=== PATIENT | female | born 1940 | race Caucasian/White ===

== ENCOUNTER → 2017-12-11 11:38 | Outpatient (CLI) | payer MEDICARE, SELFPAY ==
--- NOTE | 2017-12-11 11:42 | DI.MG.S_ITS ---
BILATERAL DIGITAL SCREENING MAMMOGRAM 3D/2D WITH CAD: 12/11/2017 CLINICAL: Routine screening. Comparison is made to exams dated: 03/04/2014 mammogram, 05/31/2013 mammogram, and 05/24/2013 mammogram - [facility]. The tissue of both breasts is predominantly fatty. Current study was also evaluated with a Computer Aided Detection (CAD) system. There are benign vascular calcifications in both breasts. No significant masses, calcifications, or other findings are seen in either breast. There has been no significant interval change. IMPRESSION: BENIGN There is no mammographic evidence of malignancy. A 1 year screening mammogram is recommended. This exam was interpreted at Station ID: [id number]. NOTE: For mammograms, a report in lay terms will be sent to the patient. Approximately 15% of breast malignancies will not be visualized mammographically. In the management of a palpable breast mass, a negative mammogram must not discourage biopsy of a clinically suspicious lesion. Electronically Signed By: Faby thomas/kelley:12/11/2017 13:12:02 letter sent: Normal Exam ACR BI-RADS Category 2: Benign Finding(s) 3342F
== END ==
PROVIDERS: Visit Provider Internal Medicine
DX: Z12.31 Encounter for screening mammogram for malignant neoplasm of breast (principal)
CPT/HCPCS: 77063; 77067

== ENCOUNTER → 2018-11-06 16:25 | Outpatient (CLI) | payer MEDICARE, SELFPAY ==
--- NOTE | 2018-11-06 16:29 | DI.RAD.S_ITS ---
PROCEDURE: XR ANKLE LT MIN 3V INDICATIONS: LEFT ANKLE SPRAIN TECHNIQUE: 3 views of the ankle were acquired. COMPARISON: None. FINDINGS: Bones: No fractures or dislocations. Ankle mortise is normally aligned. No suspicious bony lesions. Soft tissues: No tibiotalar joint effusion. Achilles tendon appears normal. Relatively prominent soft tissue swelling is present along the medial aspect of the distal tibia. No malalignment is associated, however. IMPRESSION: No trauma found. A mild degree of ankle joint osteoarthritis is present as indicated by mild joint space narrowing. Note is made of soft tissue swelling over the medial malleolus, potentially a manifestation of hematoma or ligamentous injury after trauma. Dictated by: Noman Hiknle M.D. on 11/06/2018 at 17:30 Approved by: Noman Hinkle M.D. on 11/06/2018 at 17:31
== END ==
PROVIDERS: Visit Provider Internal Medicine
DX: S93.402A Sprain of unspecified ligament of left ankle, initial encounter (principal); M79.89 Other specified soft tissue disorders; M19.072 Primary osteoarthritis, left ankle and foot
CPT/HCPCS: 73610

== ENCOUNTER → 2019-04-09 12:58 | Outpatient (CLI) | payer MEDICARE, SELFPAY ==
--- NOTE | 2019-04-09 | DI.MG.S_ITS ---
BILATERAL DIGITAL SCREENING MAMMOGRAM 3D/2D WITH CAD: 04/09/2019 CLINICAL: Routine screening. Comparison is made to exams dated: 12/11/2017 mammogram, 05/24/2013 mammogram, and 05/22/2012 mammogram - [facility]. There are scattered fibroglandular elements in both breasts. Current study was also evaluated with a Computer Aided Detection (CAD) system. There are benign calcifications in both breasts. There also are benign vascular calcifications in both breasts. No significant masses, calcifications, or other findings are seen in either breast. There has been no significant interval change. IMPRESSION: There is no mammographic evidence of malignancy. A 1 year screening mammogram is recommended. This exam was interpreted at Station ID: [id number]. NOTE: For mammograms, a report in lay terms will be sent to the patient. Approximately 15% of breast malignancies will not be visualized mammographically. In the management of a palpable breast mass, a negative mammogram must not discourage biopsy of a clinically suspicious lesion. Electronically Signed By: Israel eubanks/kelley:04/12/2019 13:29:06 letter sent: Normal Exam ACR BI-RADS Category 2: Benign Finding(s) 3342F
== END ==
PROVIDERS: Visit Provider Internal Medicine
DX: Z12.31 Encounter for screening mammogram for malignant neoplasm of breast (principal)
CPT/HCPCS: 77063; 77067

== ENCOUNTER → 2019-05-04 12:46 | Outpatient (CLI) | payer MEDICARE, SELFPAY ==
[2019-05-04 13:49] LABS: Aspartate Aminotransferase 34 IU/L (14-36); Blood Urea Nitrogen 12 mg/dL (7-17); Calcium 9.8 mg/dL (8.4-10.2); Carbon Dioxide 25 mmol/L (22-32); Chloride 93 mmol/L (98-107); Cholesterol 125 mg/dL (140-199); Estimated Glomerular Filt Rate > 60.0 mL/min (>60); Glucose 101 mg/dL (80-110); HDL Cholesterol 40 mg/dL (40-60); HEMOLYSIS < 15 (0-50); LDL Cholesterol Calculated 60 mg/dL (<100); Potassium 3.4 mmol/L (3.4-5.1); Sodium 131 mmol/L (137-145); Triglycerides 127 mg/dL (35-150)
[2019-05-04 15:06] LABS: Thyroid Stimulating Hormone 1.83 uIU/mL (0.47-4.68)
== END ==
PROVIDERS: PCP Internal Medicine; Referring Provider Internal Medicine; Visit Provider Internal Medicine
DX: I10 Essential (primary) hypertension (principal); E78.2 Mixed hyperlipidemia; E03.9 Hypothyroidism, unspecified
CPT/HCPCS: 36415; 80048; 80061; 84443; 84450

== ENCOUNTER → 2020-12-05 09:11 | Outpatient (CLI) | payer MEDICARE, SELFPAY ==
[2020-12-05 09:57] LABS: Hematocrit 33.6 % (36-46); Hemoglobin 11.3 g/dL (12.0-16.0); Mean Corpuscular HGB Conc 33.6 % (30-36); Mean Corpuscular Hemoglobin 27.6 PG (26-34); Mean Corpuscular Volume 82.4 fL (80-100); Platelet Count 309 X10^3/uL (150-400); Red Blood Cell Count 4.08 X10^6/uL (4.0-5.2); Red Cell Distribution Width 13.6 % (11.6-14.8); White Blood Cell Count 12.2 X10^3/uL (4.5-11.0)
[2020-12-05 09:58] LABS: Add Manual Diff / Slide Review YES
[2020-12-05 10:44] LABS: Alanine Aminotransferase 22 IU/L (<35); Albumin 4.1 g/dL (3.5-5.0); Albumin Globulin Ratio 1.3 (1.0-2.8); Alkaline Phosphatase 112 U/L (38-126); Aspartate Aminotransferase 36 IU/L (14-36); Bilirubin Total 0.4 mg/dL (0.2-1.3); Blood Urea Nitrogen 21 mg/dL (7-17); Calcium 9.6 mg/dL (8.4-10.2); Carbon Dioxide 29 mmol/L (22-32); Chloride 97 mmol/L (98-107); Cholesterol 107 mg/dL (140-199); Estimated Glomerular Filt Rate 53.1 mL/min (>60); Globulin 3.1 g/dL (1.7-4.1); Glucose 103 mg/dL (80-110); HDL Cholesterol 35 mg/dL (40-60); HEMOLYSIS < 15 (0-50); LDL Cholesterol Calculated 46 mg/dL (<100); Potassium 3.2 mmol/L (3.4-5.1); Sodium 134 mmol/L (137-145); Total Protein 7.2 g/dL (6.3-8.2); Triglycerides 131 mg/dL (35-150)
[2020-12-05 11:02] LABS: Free T4, Direct Thyroxine 2.25 ng/dL (0.78-2.19)
[2020-12-05 11:15] LABS: Thyroid Stimulating Hormone < 0.015 uIU/mL (0.47-4.68)
[2020-12-05 12:25] LABS: Neutrophils Absolute Manual 1952 /uL (3000-5900); Total Cells Counted 100
[2020-12-05 12:26] LABS: RBC Morphology Normal Morphology; Smudge Cells 2+
== END ==
PROVIDERS: PCP Family Medicine; Referring Provider Family Medicine; Visit Provider Family Medicine
DX: E78.5 Hyperlipidemia, unspecified (principal); I10 Essential (primary) hypertension; K21.9 Gastro-esophageal reflux disease without esophagitis; K57.90 Diverticulosis of intestine, part unspecified, without perforation or abscess without bleeding
CPT/HCPCS: 36415; 80053; 80061; 84439; 84443; 85007; 85025

== ENCOUNTER → 2020-12-18 14:35 | Outpatient (CLI) | payer MEDICARE, SELFPAY ==
[2020-12-18 18:22] LABS: COVID19 -Nasal RAPID Negative (Negative)
== END ==
PROVIDERS: PCP Family Medicine; Visit Provider Nurse Practitioner Family
DX: Z20.822 Contact with and (suspected) exposure to COVID-19 (principal); R50.9 Fever, unspecified
CPT/HCPCS: 87635

== ENCOUNTER → 2020-12-19 10:01 | Outpatient (CLI) | payer MEDICARE, SELFPAY ==
[2020-12-19 10:45] LABS: Add Manual Diff / Slide Review NO; Basophils Absolute Auto 0 /uL (0-100); Basophils Percent Auto 0.3 % (0-2); Eosinophils Absolute Auto 1000 /uL (0-450); Eosinophils Percent Auto 6.9 % (2-4); Hematocrit 34.2 % (36-46); Hemoglobin 11.5 g/dL (12.0-16.0); Lymphocytes Absolute Auto 8600 /uL (1100-4500); Lymphocytes Percent Auto 59.4 % (25-40); Mean Corpuscular HGB Conc 33.6 % (30-36); Mean Corpuscular Hemoglobin 27.2 PG (26-34); Mean Corpuscular Volume 81.1 fL (80-100); Monocytes Absolute Auto 900 /uL (0-900); Neutrophils Absolute Auto 4000 /uL (1500-7000); Neutrophils Percent Auto 27.4 % (50-75); Platelet Count 366 X10^3/uL (150-400); Red Blood Cell Count 4.22 X10^6/uL (4.0-5.2); Red Cell Distribution Width 13.1 % (11.6-14.8); White Blood Cell Count 14.5 X10^3/uL (4.5-11.0)
[2020-12-19 10:56] LABS: Alanine Aminotransferase 36 IU/L (<35); Albumin 3.9 g/dL (3.5-5.0); Albumin Globulin Ratio 1.2 (1.0-2.8); Alkaline Phosphatase 158 U/L (38-126); Aspartate Aminotransferase 55 IU/L (14-36); BUN Creatinine Ratio 26.4 (6-22); Bilirubin Total 0.3 mg/dL (0.2-1.3); Blood Urea Nitrogen 28 mg/dL (7-17); Calcium 9.8 mg/dL (8.4-10.2); Carbon Dioxide 29 mmol/L (22-32); Chloride 97 mmol/L (98-107); Estimated Glomerular Filt Rate 49.6 mL/min (>60); Globulin 3.3 g/dL (1.7-4.1); Glucose 109 mg/dL (80-110); HEMOLYSIS < 15 (0-50); Potassium 3.8 mmol/L (3.4-5.1); Sodium 134 mmol/L (137-145); Total Protein 7.2 g/dL (6.3-8.2)
[2020-12-19 11:26] LABS: Free T3, Triiodothyronine Free 5.62 pg/mL (2.77-5.27); Free T4, Direct Thyroxine 3.16 ng/dL (0.78-2.19)
[2020-12-19 11:40] LABS: Thyroid Stimulating Hormone < 0.015 uIU/mL (0.47-4.68)
== END ==
PROVIDERS: PCP Family Medicine; Referring Provider Family Medicine; Visit Provider Family Medicine
DX: D64.9 Anemia, unspecified (principal); E03.4 Atrophy of thyroid (acquired); E03.9 Hypothyroidism, unspecified
CPT/HCPCS: 36415; 80053; 84439; 84443; 84481; 85025

== ENCOUNTER 2020-12-20 14:08 | Emergency (ER) | payer MEDICARE, SELFPAY ==
[2020-12-20 14:12] VITALS: BP 137/74; PULSE 77; RESP 20; TEMP 36.9; O2SAT 97
--- NOTE | 2020-12-20 14:27 | ED.ABDPAIN ---
HPI - Abdominal Pain General Chief Complaint: Abdominal Pain Stated Complaint: diarrhea/shaky/lower left side pain x6 days Time Seen by Provider: 12/20/20 14:10 Source: patient and family Mode of arrival: Ambulatory History of Present Illness HPI narrative: 80-year-old female nonsmoker with history of hypertension, hyperlipidemia, GERD and hypothyroid presents with a chief complaint of a few days of gradual worsening left lower quadrant pain which is quite reminiscent of prior episodes of diverticulitis. She denies fever or chills and has been nauseated but denies vomiting. Her pain is worse when she moves and improves with rest. She denies any dysuria, frequency or urgency. Her last intake was it probably 130 or 2:00 p.m. today. She denies any chest pain or shortness of breath. Related Data Home Medications Medication Instructions Recorded Confirmed omeprazole magnesium 20 mg 20 mg PO QDAY #0 01/15/11 12/04/20 tablet,delayed release (Prilosec OTC) aspirin 81 mg tablet,delayed 81 mg PO DAILY 06/02/20 12/04/20 release calcium carbonate 500 mg calcium 500 mg PO BID 06/02/20 12/04/20 (1,250 mg) tablet doxylamine succinate 25 mg tablet 25 mg PO BEDTIME PRN 06/02/20 12/04/20 (Unisom (doxylamine)) lactobacillus combination no.9 PO 06/02/20 12/04/20 [Adult 50 Plus Probiotic] losartan 100 1 tab PO DAILY 06/02/20 12/04/20 mg-hydrochlorothiazide 25 mg tablet Previous Rx's Medication Instructions Recorded diclofenac sodium 1 % topical gel 2 g TOPICAL QID #100 g 08/07/20 (Voltaren) potassium chloride 10 mEq 10 meq PO DAILY #90 cap 08/08/20 capsule,extended release atorvastatin 40 mg tablet 40 mg PO DAILY #90 tab 12/04/20 carvedilol 12.5 mg tablet 12.5 mg PO BID #180 tab 12/04/20 furosemide 20 mg tablet 10 mg PO QAM #90 tab 12/04/20 levothyroxine 175 mcg tablet 175 mcg PO DAILY #90 tab 12/04/20 Allergies Allergy/AdvReac Type Severity Reaction Status Date / Time hydrocodone [HYDROCODONE] AdvReac Unknown HALLUCINATI Verified 12/04/20 13:07 ONS ibuprofen [IBUPROFEN] AdvReac Unknown GI UPSET Verified 12/04/20 13:07 oxycodone [OXYCODONE] AdvReac Unknown HALLUCINATI Verified 12/04/20 13:07 ONS Review of Systems Review of Systems Narrative: GENERAL: Denies chills, fatigue, malaise, fever, sweats. HEENT: Denies sinus pain, ear pain, sore throat, difficulty swallowing, dizziness. RESPIRATORY: Denies dyspnea, cough, wheezing, hemoptysis, sputum. CARDIOVASCULAR: Denies chest pain, palpitations, orthopnea, edema, GASTROINTESTINAL: See HPI : Denies dysuria, frequency, incontinence, hematuria, urinary retention. MUSCULOSKELETAL: denies weakness, joint pain, or bony pain SKIN: Denies rash, skin lesions, or other NEUROLOGIC: Denies weakness, headache, numbness, change in speech, confusion, seizures, incoordination. PSYCHIATRIC: No concerning psychosocial issues. 12 point review of systems is negative except for those stated above Patient History Medical History Abnormal chest xray (~1956) Anemia (~1956) Anemia Anxiety (~2000) Cataracts, bilateral (~2015) Chicken pox Chronic back pain (~1980) Diverticulosis (~2018) GERD (gastroesophageal reflux disease) Hyperlipidemia Hypertension Hypothyroidism Measles Mumps Pleurisy (~1953) Skin cancer, basal cell (~2009) Wears glasses Surgical History Anesthesia Bone spur of foot (~2008) History of appendectomy (~1952) History of hysterectomy (~1972) History of left hip replacement (~12/2010) History of right hip replacement (~12/2000) History of tonsillectomy (~1959) Family History Father Cancer Mother No problems noted. Brother Cancer Grandfather Pneumonia Grandmother Parkinson's disease Social History Smoking Status: Never smoker alcohol intake: former (Stopped due to diverticulitis ) Smoking Status: Never smoker Exam Narrative Exam Narrative: GENERAL: 80 [] year old patient appears stated age. Well-developed patient, in mild distress. HEAD: Atraumatic. Normocephalic. EYES: Pupils equal round and reactive. Extraocular motions intact. No scleral icterus. No injection or drainage. ENT: Nose without bleeding, purulent drainage. Throat without erythema, tonsillar hypertrophy or exudate. Airway patent. NECK: Trachea midline. Non tender CARDIOVASCULAR: Regular rate and rhythm without murmurs, gallops, or rubs. RESPIRATORY: Clear to auscultation. Breath sounds equal bilaterally. No wheezes, rales, or rhonchi. GASTROINTESTINAL: Abdomen soft, tender in the left lower quadrant and right lower quadrant with localized peritonitis and guarding , nondistended. EXTREMITIES: No edema or joint tenderness. BACK: Nontender without deformity or crepitance. No flank tenderness. NEURO: AOx3. SKIN: No rash or erythema of visible areas Initial Vital Signs Initial Vital Signs: Vital Signs Temperature 98.4 F 12/20/20 14:12 Pulse Rate 77 12/20/20 14:12 Respiratory Rate 20 12/20/20 14:12 Blood Pressure 137/74 12/20/20 14:12 Pulse Oximetry 97 12/20/20 14:12 Course Orders Ordered: ED Orders 12/20/20 14:35 Complete Blood Count AUTO DIFF Stat Comprehensive Metabolic Panel Stat Lipase Stat 12/20/20 14:37 CT abdomen pelvis w con Stat Sodium Chloride (Normal Saline 0.9%) 1,000 mls @ 150 mls/hr IV CONT ADITHYA Last Admin: 12/20/20 14:57 Dose: 150 mls/hr Documented by: ARJUN Sodium Chloride (Normal Saline 0.9%) 1,000 mls @ 150 mls/hr IV CONT ADITHYA Last Admin: 12/20/20 14:45 Dose: Not Given Documented by: [email or web address] Consultations Consultation #1: Upon receipt of CT scan call placed to Dr. Casarez, he will likely take her to the OR this evening Vital Signs Vital signs: Vital Signs - 8 hr 12/20/20 14:12 12/20/20 14:41 Temperature 98.4 F Pulse Rate 77 71 Respiratory Rate 20 Blood Pressure 137/74 133/63 Pulse Oximetry 97 96 MDM - Abdominal Pain Lab Data Result diagrams: 12/20/20 14:35 12/20/20 14:35 Labs: Lab Results 09/29/21 09/29/21 Range/Units 14:35 14:35 WBC 15.7 H (4.5-11.0) X10^3/uL RBC 4.13 (4.0-5.2) X10^6/uL Hgb 11.2 L (12.0-16.0) g/dL Hct 33.3 L (36-46) % MCV 80.5 (80-100) fL MCH 27.1 (26-34) PG MCHC 33.7 (30-36) % RDW 13.4 (11.6-14.8) % Plt Count 354 (150-400) X10^3/uL Neut % (Auto) 30.4 L (50-75) % Lymph % (Auto) 55.0 H (25-40) % [place] % (Auto) 8.9 (3-14) % Eos % (Auto) 5.3 H (2-4) % Baso % (Auto) 0.4 (0-2) % Neut # (Auto) 4800 (2827-1505) /uL Lymph # (Auto) 8700 H (9857-4296) /uL [place] # (Auto) 1400 H (0-900) /uL Eos # (Auto) 800 H (0-450) /uL Baso # (Auto) 100 (0-100) /uL Sodium 132 L (137-145) mmol/L Potassium 3.9 (3.4-5.1) mmol/L Chloride 95 L (98-107) mmol/L Carbon Dioxide 30 (22-32) mmol/L BUN 27 H (7-17) mg/dL Creatinine 1.06 H (0.52-1.04) mg/dL Estimated GFR 49.6 L (>60) mL/min BUN/Creatinine Ratio 25.5 H (6-22) Glucose 115 H (80-110) mg/dL Calcium 9.7 (8.4-10.2) mg/dL Total Bilirubin 0.3 (0.2-1.3) mg/dL AST 59 H (14-36) IU/L ALT 41 H (<35) IU/L Alkaline Phosphatase 167 H (38-126) U/L Total Protein 7.1 (6.3-8.2) g/dL Albumin 3.9 (3.5-5.0) g/dL Globulin 3.2 (1.7-4.1) g/dL Albumin/Globulin Ratio 1.2 (1.0-2.8) Lipase 92 (23-300) U/L Point of care testing: Urine Dip Bedside Urine Glucose Negative Bedside Urine Bilirubin - Negative Bedside Urine Ketone - Negative Urine Specific [place] 1.010 Bedside Urine Occult Blood - Negative Bedside Urine pH 6.0 Bedside Urine Protein - Negative Bedside Urine Urobilinogen - Negative Bedside Urine Nitrite - Negative Bedside Urine Leukocytes - Negative Esterase Imaging Data CT scan - abdomen/pelvis: Radiologist's Impression: Lynnette Shaffer??80??F??1940 ? Allergy/Adv: hydrocodone, ibuprofen, oxycodone (More??) Close Abdomen/Pelvis CT (Signed) Mark Mckeon - 12/20/20 Mammogram Screening (Signed) RuizIsrael - 04/09/19 Ankle X-Ray (Signed) Noman Hinkle - 11/06/18 Mammogram Screening (Signed) Faby Awad - 12/11/17 [place] [id number] CT Scan Report Signed Patient: Lynnette Shaffer MR#: [id number] : 1940 Acct:[id number] Age/Sex: 80 / F Date of Service: 12/20/20 Loc: ED Accession Number: [id number] ?? Procedure: CT abdomen pelvis w con Ordering Provider: Braden Leonard D.O. PROCEDURE:? CT ABDOMEN PELVIS W CON ? INDICATIONS:? severe left lower quadrant pain ? TECHNIQUE:? After the administration of intravenous contrast, axial sections acquired from the lung bases to the pubic symphysis.? Coronal and sagittal reformats were performed.? For radiation dose reduction, the following was used:? automated exposure control, adjustment of mA and/or kV according to patient size.? ? COMPARISON:? None. ? FINDINGS:? Image quality:? Images are limited by streak artifact due to bilateral hip arthroplasties.? In particular, the urinary bladder, distal portions of the ureters and a segment of the sigmoid colon are entirely obscured. ? Lung bases:? No acute airspace opacity. Heart:? No significant findings. ? ABDOMEN: Liver:? Uniform hepatic parenchymal attenuation. Gallbladder:? Tiny layering gallstones.? No findings of cholecystitis. Biliary ducts:? No intrahepatic or extrahepatic biliary ductal dilatation. Pancreas:? No peripancreatic inflammatory changes or pancreatic ductal dilatation. Spleen:? Normal size and appearance.? ? Adrenal Glands:? No adrenal gland nodule or mass. Kidneys and Ureters:? No hydronephrosis or perinephric fat stranding.? Visualized portions of the ureters are normal in caliber. ? Stomach and Bowel:? The appendix measures up to 1 centimeter in diameter with a wall thickness of approximately 3 millimeters.? Questionable mucosal hyperenhancement.? No appendicoliths.? No periappendiceal fat stranding.? No abnormally dilated or thickened loop of bowel.? No pericolonic or mesenteric inflammatory changes.? Sigmoid diverticulosis. Peritoneum:? No abnormal intraperitoneal fluid.? No free air.? ? Ventral Wall: ? No hernias.? Abdominal Nodes:? No retroperitoneal or mesenteric adenopathy by size criteria.? Vessels:? Aorta and inferior vena cava are normal in size.? ? PELVIS: Pelvic Organs:? Unremarkable.? ? Bladder:? Unremarkable.? ? Pelvic Nodes: No enlarged lymph nodes.? Miscellaneous: No hernias are seen. ? ? ? Bones:? Unremarkable.? IMPRESSION:? Threshold dilated and fluid-filled appendix with borderline wall thickening and questionable mucosal hyperenhancement, although without adjacent inflammatory changes.? Findings are equivocal for early appendicitis.? A short interval follow-up study 4-6 hours could be helpful in excluding appendicitis.? ? ? Dictated by: Mark Mckeon M.D. on 12/20/2020 at 15:15 ? ? Approved by: Mark Mckeon M.D. on 12/20/2020 at 15:21 ? Discharge Plan Departure Patient Disposition: Admitted as Observation Clinical Impression: Acute appendicitis Admit Date/Time: 12/20/20 16:51 Admit Provider: Gus Casarez
--- NOTE | 2020-12-20 14:37 | DI.CT.S_ITS ---
PROCEDURE: CT ABDOMEN PELVIS W CON INDICATIONS: severe left lower quadrant pain TECHNIQUE: After the administration of intravenous contrast, axial sections acquired from the lung bases to the pubic symphysis. Coronal and sagittal reformats were performed. For radiation dose reduction, the following was used: automated exposure control, adjustment of mA and/or kV according to patient size. COMPARISON: None. FINDINGS: Image quality: Images are limited by streak artifact due to bilateral hip arthroplasties. In particular, the urinary bladder, distal portions of the ureters and a segment of the sigmoid colon are entirely obscured. Lung bases: No acute airspace opacity. Heart: No significant findings. ABDOMEN: Liver: Uniform hepatic parenchymal attenuation. Gallbladder: Tiny layering gallstones. No findings of cholecystitis. Biliary ducts: No intrahepatic or extrahepatic biliary ductal dilatation. Pancreas: No peripancreatic inflammatory changes or pancreatic ductal dilatation. Spleen: Normal size and appearance. Adrenal Glands: No adrenal gland nodule or mass. Kidneys and Ureters: No hydronephrosis or perinephric fat stranding. Visualized portions of the ureters are normal in caliber. Stomach and Bowel: The appendix measures up to 1 centimeter in diameter with a wall thickness of approximately 3 millimeters. Questionable mucosal hyperenhancement. No appendicoliths. No periappendiceal fat stranding. No abnormally dilated or thickened loop of bowel. No pericolonic or mesenteric inflammatory changes. Sigmoid diverticulosis. Peritoneum: No abnormal intraperitoneal fluid. No free air. Ventral Wall: No hernias. Abdominal Nodes: No retroperitoneal or mesenteric adenopathy by size criteria. Vessels: Aorta and inferior vena cava are normal in size. PELVIS: Pelvic Organs: Unremarkable. Bladder: Unremarkable. Pelvic Nodes: No enlarged lymph nodes. Miscellaneous: No hernias are seen. Bones: Unremarkable. IMPRESSION: Threshold dilated and fluid-filled appendix with borderline wall thickening and questionable mucosal hyperenhancement, although without adjacent inflammatory changes. Findings are equivocal for early appendicitis. A short interval follow-up study 4-6 hours could be helpful in excluding appendicitis. Dictated by: Mark Mckeon M.D. on 12/20/2020 at 15:15 Approved by: Mark Mckeon M.D. on 12/20/2020 at 15:21
[2020-12-20 14:41] VITALS: BP 133/63; PULSE 71; O2SAT 96
[2020-12-20 14:43] LABS: Add Manual Diff / Slide Review NO; Basophils Absolute Auto 100 /uL (0-100); Basophils Percent Auto 0.4 % (0-2); Eosinophils Absolute Auto 800 /uL (0-450); Eosinophils Percent Auto 5.3 % (2-4); Hematocrit 33.3 % (36-46); Hemoglobin 11.2 g/dL (12.0-16.0); Lymphocytes Absolute Auto 8700 /uL (1100-4500); Mean Corpuscular HGB Conc 33.7 % (30-36); Mean Corpuscular Hemoglobin 27.1 PG (26-34); Mean Corpuscular Volume 80.5 fL (80-100); Monocytes Absolute Auto 1400 /uL (0-900); Monocytes Percent Auto 8.9 % (3-14); Neutrophils Absolute Auto 4800 /uL (1500-7000); Neutrophils Percent Auto 30.4 % (50-75); Platelet Count 354 X10^3/uL (150-400); Red Blood Cell Count 4.13 X10^6/uL (4.0-5.2); Red Cell Distribution Width 13.4 % (11.6-14.8); White Blood Cell Count 15.7 X10^3/uL (4.5-11.0)
[2020-12-20 14:53] LABS: Alanine Aminotransferase 41 IU/L (<35); Albumin 3.9 g/dL (3.5-5.0); Albumin Globulin Ratio 1.2 (1.0-2.8); Alkaline Phosphatase 167 U/L (38-126); Aspartate Aminotransferase 59 IU/L (14-36); BUN Creatinine Ratio 25.5 (6-22); Bilirubin Total 0.3 mg/dL (0.2-1.3); Blood Urea Nitrogen 27 mg/dL (7-17); Calcium 9.7 mg/dL (8.4-10.2); Carbon Dioxide 30 mmol/L (22-32); Chloride 95 mmol/L (98-107); Estimated Glomerular Filt Rate 49.6 mL/min (>60); Globulin 3.2 g/dL (1.7-4.1); Glucose 115 mg/dL (80-110); HEMOLYSIS < 15 (0-50); Lipase 92 U/L (23-300); Potassium 3.9 mmol/L (3.4-5.1); Sodium 132 mmol/L (137-145); Total Protein 7.1 g/dL (6.3-8.2)
[2020-12-20] MEDS: SODIUM CHLORIDE 0.9% 1,000 ML 150 ML IV (14:57)
[2020-12-20 15:00] VITALS: PULSE 70; O2SAT 97
--- NOTE | 2020-12-20 18:16 | P.CONS_ITS ---
History of Present Illness Consult details Chief complaint: diarrhea/shaky/lower left side pain x6 days Narrative: The patient is a woman who has had diarrhea for at least 2 years. This began sometime after the treatment of acute diverticulitis with oral antibiotics. She is uncertain if she has ever had stool studies. The thing that precipitated her visit today as she has had intermittent diarrhea when she eats. She started having some shaking. She had labs drawn by her family doctor but unfortunately he is unavailable today and she called the office and they recommended that she come to the emergency room. She as best I can tell has not had an acute change in her symptoms. She has persistent lower abdominal pain especially when she has diarrhea which is daily. She has already had 4 bouts today which is not unusual. She has not seen blood in her stool and her last colonoscopy was about 4 years ago she thinks. She has been trying to follow a diverticulitis diet as recommended by the [facility] website. The discomfort she is having right now is not like the diverticulitis pain she had 2 years ago. This is more of a chronic symptom. She might not have come to the emergency room if she had been able to see her doctor today. It was their recommendation that she come to the ER. She does have a history of having an appendectomy in the [place] when she was 11. Meds Home Medications and Allergies Home Medications Medication Instructions Recorded Confirmed Type omeprazole magnesium 20 mg 20 mg PO QDAY #0 01/15/11 12/04/20 History tablet,delayed release (Prilosec OTC) aspirin 81 mg tablet,delayed 81 mg PO DAILY 06/02/20 12/04/20 History release calcium carbonate 500 mg calcium 500 mg PO BID 06/02/20 12/04/20 History (1,250 mg) tablet doxylamine succinate 25 mg tablet 25 mg PO BEDTIME PRN 06/02/20 12/04/20 History (Unisom (doxylamine)) lactobacillus combination no.9 PO 06/02/20 12/04/20 History [Adult 50 Plus Probiotic] losartan 100 1 tab PO DAILY 06/02/20 12/04/20 History mg-hydrochlorothiazide 25 mg tablet diclofenac sodium 1 % topical gel 2 g TOPICAL QID #100 g 08/07/20 12/04/20 Rx (Voltaren) potassium chloride 10 mEq 10 meq PO DAILY #90 cap 08/08/20 12/04/20 Rx capsule,extended release atorvastatin 40 mg tablet 40 mg PO DAILY #90 tab 12/04/20 12/04/20 Rx carvedilol 12.5 mg tablet 12.5 mg PO BID #180 tab 12/04/20 12/04/20 Rx furosemide 20 mg tablet 10 mg PO QAM #90 tab 12/04/20 12/04/20 Rx levothyroxine 175 mcg tablet 175 mcg PO DAILY #90 tab 12/04/20 12/04/20 Rx Allergies Allergy/AdvReac Type Severity Reaction Status Date / Time hydrocodone [HYDROCODONE] AdvReac Unknown HALLUCINATI Verified 12/04/20 13:07 ONS ibuprofen [IBUPROFEN] AdvReac Unknown GI UPSET Verified 12/04/20 13:07 oxycodone [OXYCODONE] AdvReac Unknown HALLUCINATI Verified 12/04/20 13:07 ONS Review of Systems Review of Systems Narrative: The patient denies visual difficulties except that she has had bilateral cataract procedure and she does were glasses. No double vision or pain in her eyes. No tooth aches or trouble swallowing. No cough cold. She had asthma as a child but not as an adult. She denies chest pain or prior heart attack. She is not having any black or bloody bowel movements. No kidney stones or blood in her urine. No seizures or blackouts. Exam Vital Signs (past 8 hours): - 12/20/20 14:12 12/20/20 14:41 12/20/20 15:00 Temperature 98.4 F Pulse Rate 77 71 70 Respiratory Rate 20 Blood Pressure 137/74 133/63 Pulse Oximetry 97 96 97 Oxygen Delivery Method Room Air Narrative Exam Narrative: Cooperative pleasant woman lying in appears very comfortable in no apparent distress. Equal percussion. Heart regular rate and rhythm without murmur gallop. There is she is not having pain when not palpated. Normal pitched bowel sounds noted. Patient is alert and oriented. Speech rate cut it to appropriate. Affect is appropriate. Objective Imaging CT scan - abdomen: My impression: Fairly unremarkable CT scan of the abdomen. She does have calcification in her aorta. She has what is probably chronic radiopaque findings in her cecum. I really do not see any significant inflammation in the area. She does have extensive diverticulosis principally the sigmoid colon. Th ere was not any intestinal dilatation. Radiologist's impression: Initial report from the radiologist was that she had acute appendicitis. Her history and physical exam however are not consistent with that diagnosis. No was my interpretation of her CT scan. I called the radiologist on-call. It is not clear that they were aware that she had had an appendectomy in the past in on review of her CT they do not believe that she has acute appendicitis. Labs Result Diagrams: 12/20/20 14:35 12/20/20 14:35 Labs: Laboratory Results - last 24 hr 12/20/20 12/20/20 14:35 14:35 WBC 15.7 H RBC 4.13 Hgb 11.2 L Hct 33.3 L MCV 80.5 MCH 27.1 MCHC 33.7 RDW 13.4 Plt Count 354 Neut % (Auto) 30.4 L Lymph % (Auto) 55.0 H Stephenson % (Auto) 8.9 Eos % (Auto) 5.3 H Baso % (Auto) 0.4 Neut # (Auto) 4800 Lymph # (Auto) 8700 H Stephenson # (Auto) 1400 H Eos # (Auto) 800 H Baso # (Auto) 100 Sodium 132 L Potassium 3.9 Chloride 95 L Carbon Dioxide 30 BUN 27 H Creatinine 1.06 H Estimated GFR 49.6 L BUN/Creatinine Ratio 25.5 H Glucose 115 H Calcium 9.7 Total Bilirubin 0.3 AST 59 H ALT 41 H Alkaline Phosphatase 167 H Total Protein 7.1 Albumin 3.9 Globulin 3.2 Albumin/Globulin Ratio 1.2 Lipase 92 [facility] Medical History Abnormal chest xray (~1956) Anemia (~1956) Anemia Anxiety (~2000) Cataracts, bilateral (~2015) Chicken pox Chronic back pain (~1980) Diverticulosis (~2018) GERD (gastroesophageal reflux disease) Hyperlipidemia Hypertension Hypothyroidism Measles Mumps Pleurisy (~1953) Skin cancer, basal cell (~2009) Wears glasses Surgical History Anesthesia Bone spur of foot (~2008) History of appendectomy (~1952) History of hysterectomy (~1972) History of left hip replacement (~12/2010) History of right hip replacement (~12/2000) History of tonsillectomy (~1960) Family History Father Cancer Mother No problems noted. Brother Cancer Grandfather Pneumonia Grandmother Parkinson's disease Tobacco & Substance Use Smoking Status: Never smoker alcohol intake: former (Stopped due to diverticulitis ) Assessment & Plan Assessment and plan (1) Diarrhea: Qualifiers: Diarrhea type: unspecified type Qualified Code(s): R19.7 - Diarrhea, unspecified Status: Acute (2) Abdominal pain: Qualifiers: Abdominal location: left lower quadrant Qualified Code(s): R10.32 - Left lower quadrant pain Status: Acute Assessment & Plan narrative: It appears the principal reason the patient was came to the emergency room was because of abnormal lab findings by her primary provider and the fact that they were unable to see him today because he is staffing in office in the [facility]. Based on the reinterpretation of the CT scan on my own clinical evaluation I think her chronic diarrhea is the principal source of her intestinal problems. It is not clear however the source of this. The diarrhea seems to be triggered by eating. She has been avoiding wheat and rye products. She has not really been on a gluten free diet. Also she does eat cheese yogurt and drinks milk. No on his talked to her about the possibility of a lactose intolerance having developed. It is not clear she has had any stool studies performed. Her dietary information came from [facility] website that was for diverticulitis which it is not clear she has at this time. Her white blood cell count is elevated but it is principally lymphs which would suggest a non bacterial infectious source or some other process. I do not believe she has a surgical abdomen. I talked to her about her diet. I recommended that she can actually eat vegetables. She can eat meat and so forth. I asked her to try to eat a gluten free diet for about 2 weeks and see if it makes any difference. I also asked her to take Lactaid whenever she has any dairy product to see if it makes any difference. She drinks Ensure regular least to get some additional nutrition since she has so much trouble eating and that can sometimes be a source of diarrhea as well. I have ordered stool studies including O&P and cultures as well as a GI panel. Occasionally I find an overgrowth of bacteria that are not necessarily checked for on the GI panel and thus I have ordered the culture as well as the panel. I have asked that she be sent home with specimen containers and her can bring them tomorrow. I will call her with the results. I explained that some of the test will take weeks to obtain while others will be available the day that they submit the specimens Time Spent With Patient Critical Care time: I spent a total of [] minutes of critical care time on this patient's care today; this time is exclusive of procedural time.
[2020-12-20 19:03] VITALS: BP 170/72; PULSE 72; O2SAT 97
[2020-12-21 21:43] LABS: Adenovirus F 40/41 Not Detected (Not Detect); Astrovirus Not Detected (Not Detect); Campylobacter Not Detected (Not Detect); Clostridium difficile toxin AB Not Detected (Not Detect); Cryptosporidium Not Detected (Not Detect); Cyclospora cayetanensis Not Detected (Not Detect); Entamoeba histolytica Not Detected (Not Detect); Enteroaggregative E.coli Not Detected (Not Detect); Enteropathogenic E.coli Not Detected (Not Detect); Enterotoxigenic E.coli It/st Not Detected (Not Detect); Giardia lamblia Not Detected (Not Detect); Norovirus GI/GII Not Detected (Not Detect); Plesiomonsa shigelloides Not Detected (Not Detect); Salmonella Not Detected (Not Detect); Shiga-like toxin-prod E.coli Not Detected (Not Detect); Shigella/Enteroinvasive E.coli Not Detected (Not Detect); Vibrio Not Detected (Not Detect); Vibrio cholerae Not Detected (Not Detect); Yersinia enterocolitica Not Detected (Not Detect)
[2020-12-21 21:44] LABS: Rotavirus A Not Detected (Not Detect); Sapovirus Not Detected (Not Detect)
== END 2020-12-20 19:07 | disposition home or self-care (01) ==
LOC: ED 14:23 → AC 17:04 → ED 18:20
PROVIDERS: Specialist; Emergency Provider Emergency Medicine; PCP Family Medicine; Referring Provider Emergency Medicine
DX: K35.80 Unspecified acute appendicitis (principal); K52.9 Noninfective gastroenteritis and colitis, unspecified; R10.32 Left lower quadrant pain
CPT/HCPCS: 36415; 74177; 80053; 81003; 83690; 85025; 87045; 87177; 87507; 87899; 96360; 96361; 99284; Q9967

== ENCOUNTER → 2021-02-08 09:19 | Outpatient (CLI) | payer MEDICARE, SELFPAY ==
[2021-02-08 09:55] LABS: Hematocrit 32.9 % (36-46); Hemoglobin 10.9 g/dL (12.0-16.0); Mean Corpuscular HGB Conc 33.2 % (30-36); Mean Corpuscular Hemoglobin 26.9 PG (26-34); Platelet Count 280 X10^3/uL (150-400); Red Blood Cell Count 4.06 X10^6/uL (4.0-5.2); Red Cell Distribution Width 15.4 % (11.6-14.8); White Blood Cell Count 12.8 X10^3/uL (4.5-11.0)
[2021-02-08 09:57] LABS: Add Manual Diff / Slide Review YES
[2021-02-08 10:25] LABS: Alanine Aminotransferase 23 IU/L (<35); Albumin 4.1 g/dL (3.5-5.0); Albumin Globulin Ratio 1.4 (1.0-2.8); Alkaline Phosphatase 97 U/L (38-126); Aspartate Aminotransferase 41 IU/L (14-36); BUN Creatinine Ratio 17.1 (6-22); Bilirubin Total 0.4 mg/dL (0.2-1.3); Blood Urea Nitrogen 18 mg/dL (7-17); Calcium 9.5 mg/dL (8.4-10.2); Carbon Dioxide 29 mmol/L (22-32); Chloride 95 mmol/L (98-107); Estimated Glomerular Filt Rate 50.2 mL/min (>60); Globulin 2.9 g/dL (1.7-4.1); Glucose 98 mg/dL (80-110); HEMOLYSIS < 15 (0-50); Potassium 3.5 mmol/L (3.4-5.1); Sodium 133 mmol/L (137-145)
[2021-02-08 10:41] LABS: Free T3, Triiodothyronine Free 3.14 pg/mL (2.77-5.27); Free T4, Direct Thyroxine 1.52 ng/dL (0.78-2.19)
[2021-02-08 10:53] LABS: Neutrophils Absolute Manual 2304 /uL (3000-5900); Poikilocytosis 1+; Total Cells Counted 100
[2021-02-08 10:54] LABS: Smudge Cells 1+
[2021-02-08 11:02] LABS: Thyroid Stimulating Hormone < 0.015 uIU/mL (0.47-4.68)
== END ==
PROVIDERS: PCP Family Medicine; Referring Provider Family Medicine; Visit Provider Family Medicine
DX: E03.9 Hypothyroidism, unspecified (principal); K57.90 Diverticulosis of intestine, part unspecified, without perforation or abscess without bleeding; K52.9 Noninfective gastroenteritis and colitis, unspecified; Z87.19 Personal history of other diseases of the digestive system
CPT/HCPCS: 36415; 80053; 84439; 84443; 84481; 85007; 85025

== ENCOUNTER → 2021-05-08 09:37 | Outpatient (CLI) | payer MEDICARE, SELFPAY ==
[2021-05-08 14:19] LABS: Free T4, Direct Thyroxine 1.74 ng/dL (0.78-2.19)
[2021-05-08 14:33] LABS: Thyroid Stimulating Hormone 0.038 uIU/mL (0.47-4.68)
== END ==
PROVIDERS: PCP Family Medicine; Referring Provider Family Medicine; Visit Provider Family Medicine
DX: E03.9 Hypothyroidism, unspecified (principal)
CPT/HCPCS: 36415; 84439; 84443; 84481

== ENCOUNTER → 2021-11-13 10:26 | Outpatient (CLI) | payer MEDICARE, SELFPAY ==
[2021-11-13 11:52] LABS: Add Manual Diff / Slide Review NO; Basophils Absolute Auto 0 /uL (0-100); Basophils Percent Auto 0.2 % (0-2); Eosinophils Absolute Auto 100 /uL (0-450); Eosinophils Percent Auto 0.5 % (2-4); Hematocrit 34.3 % (36-46); Hemoglobin 11.7 g/dL (12.0-16.0); Lymphocytes Absolute Auto 11300 /uL (1100-4500); Lymphocytes Percent Auto 72.1 % (25-40); Mean Corpuscular Hemoglobin 28.9 PG (26-34); Monocytes Absolute Auto 500 /uL (0-900); Monocytes Percent Auto 3.2 % (3-14); Neutrophils Absolute Auto 3800 /uL (1500-7000); Platelet Count 295 X10^3/uL (150-400); Red Blood Cell Count 4.04 X10^6/uL (4.0-5.2); Red Cell Distribution Width 13.6 % (11.6-14.8); White Blood Cell Count 15.7 X10^3/uL (4.5-11.0)
[2021-11-13 12:05] LABS: Alanine Aminotransferase 18 IU/L (<35); Albumin Globulin Ratio 1.3 (1.0-2.8); Alkaline Phosphatase 96 U/L (38-126); Aspartate Aminotransferase 37 IU/L (14-36); BUN Creatinine Ratio 18.3 (6-22); Bilirubin Total 0.4 mg/dL (0.2-1.3); Blood Urea Nitrogen 17 mg/dL (7-17); Calcium 9.2 mg/dL (8.4-10.2); Carbon Dioxide 30 mmol/L (22-32); Chloride 93 mmol/L (98-107); Cholesterol 142 mg/dL (140-199); Estimated Glomerular Filt Rate > 60 mL/min (>60); Glucose 98 mg/dL (80-110); HDL Cholesterol 46 mg/dL (40-60); HEMOLYSIS < 15 (0-50); LDL Cholesterol Calculated 76 mg/dL (<100); Sodium 130 mmol/L (137-145); Triglycerides 100 mg/dL (35-150)
[2021-11-13 12:37] LABS: Neutrophils Absolute Manual 2669 /uL (3000-5900); RBC Morphology Normal Morphology; Smudge Cells 1+; Total Cells Counted 100
[2021-11-13 12:51] LABS: Free T3, Triiodothyronine Free 3.39 pg/mL (2.77-5.27); Free T4, Direct Thyroxine 1.72 ng/dL (0.78-2.19)
[2021-11-13 13:06] LABS: Thyroid Stimulating Hormone < 0.015 uIU/mL (0.47-4.68)
== END ==
PROVIDERS: PCP Family Medicine; Referring Provider Family Medicine; Visit Provider Family Medicine
DX: I10 Essential (primary) hypertension (principal); E78.2 Mixed hyperlipidemia; E03.9 Hypothyroidism, unspecified
CPT/HCPCS: 36415; 80053; 80061; 84439; 84443; 84481; 85007; 85025

== ENCOUNTER → 2022-07-06 11:45 | Outpatient (CLI) | payer MEDICARE, SELFPAY ==
--- NOTE | 2022-07-06 11:47 | DI.CT.S_ITS ---
PROCEDURE: CT HEAD/BRAIN WO CON INDICATIONS: Fall, hit head, R/O brain bleed TECHNIQUE: Noncontrast 4.5 mm thick angled axial sections acquired from the foramen magnum to the vertex, with coronal and sagittal reformats. For radiation dose reduction, the following was used: automated exposure control, adjustment of mA and/or kV according to patient size. COMPARISON: None. FINDINGS: Image quality: Excellent. CSF spaces: Basal cisterns are patent. No extra-axial fluid collections. The ventricles are symmetric in size and shape. Brain: No intracranial bleeds or masses. There is cerebral volume loss for age, with resultant ventricular and sulcal prominence. There are periventricular and deep white matter chronic small vessel ischemic changes. There is intracranial internal carotid artery atherosclerosis. Skull and face: Calvarium and visualized facial bones appear intact, without suspicious lesions. Sinuses: Visualized sinuses and mastoids are clear. IMPRESSION: 1. No CT evidence of acute intracranial abnormalities. 2. No gross acute skull fracture. Dictated by: Primitivo Juan M.D. on 07/06/2022 at 12:07 Approved by: Primitivo Juan M.D. on 07/06/2022 at 12:08
== END ==
PROVIDERS: PCP Family Medicine; Referring Provider Family Medicine; Visit Provider Family Medicine
DX: W19.XXXA Unspecified fall, initial encounter (principal); R51.9 Headache, unspecified; H53.8 Other visual disturbances; S09.90XA Unspecified injury of head, initial encounter
CPT/HCPCS: 70450

== ENCOUNTER → 2022-10-30 14:53 | Outpatient (CLI) | payer MEDICARE, SELFPAY ==
[2022-10-30 16:04] LABS: Hematocrit 34.1 % (36-46); Hemoglobin 11.5 g/dL (12.0-16.0); Mean Corpuscular HGB Conc 33.7 % (30-36); Mean Corpuscular Hemoglobin 28.9 PG (26-34); Mean Corpuscular Volume 85.8 fL (80-100); Platelet Count 349 X10^3/uL (150-400); Red Blood Cell Count 3.97 X10^6/uL (4.0-5.2); Red Cell Distribution Width 13.5 % (11.6-14.8); White Blood Cell Count 20.7 X10^3/uL (4.5-11.0)
[2022-10-30 16:05] LABS: Add Manual Diff / Slide Review YES
[2022-10-30 16:14] LABS: Neutrophils Absolute Manual 6210 /uL (3000-5900); Total Cells Counted 100
[2022-10-30 16:15] LABS: RBC Morphology Normal Morphology
[2022-10-30 16:16] LABS: Smudge Cells 2+
[2022-10-30 16:20] LABS: Alanine Aminotransferase 21 IU/L (<35); Albumin 4.2 g/dL (3.5-5.0); Albumin Globulin Ratio 1.3 (1.0-2.8); Alkaline Phosphatase 91 U/L (38-126); Aspartate Aminotransferase 37 IU/L (14-36); BUN Creatinine Ratio 23.8 (6-22); Bilirubin Total 0.5 mg/dL (0.2-1.3); Blood Urea Nitrogen 19 mg/dL (7-17); Calcium 9.9 mg/dL (8.4-10.2); Carbon Dioxide 28 mmol/L (22-32); Chloride 94 mmol/L (98-107); Cholesterol 150 mg/dL (140-199); Estimated Glomerular Filt Rate > 60 mL/min (>60); Globulin 3.2 g/dL (1.7-4.1); Glucose 95 mg/dL (80-110); HDL Cholesterol 47 mg/dL (40-60); HEMOLYSIS 52 (0-50); LDL Cholesterol Calculated 69 mg/dL (<100); Potassium 3.8 mmol/L (3.4-5.1); Sodium 131 mmol/L (137-145); Total Protein 7.4 g/dL (6.3-8.2); Triglycerides 168 mg/dL (35-150)
[2022-10-30 16:49] LABS: TSH w/ Reflex to FT4 0.02 uIU/mL (0.47-4.68)
== END ==
PROVIDERS: PCP Family Medicine; Referring Provider Family Medicine; Visit Provider Family Medicine
DX: E03.9 Hypothyroidism, unspecified (principal); I10 Essential (primary) hypertension; E78.2 Mixed hyperlipidemia
CPT/HCPCS: 36415; 80053; 80061; 84439; 84443; 85007; 85025

== ENCOUNTER → 2023-04-02 14:41 | Outpatient (CLI) | payer MEDICARE, SELFPAY ==
--- NOTE | 2023-04-02 14:43 | DI.RAD.S_ITS ---
PROCEDURE: XR HIP W PEL IF DONE LT 2V INDICATIONS: hx of hip replacement 20+ yrs ago, worsening pain TECHNIQUE: AP pelvis with lateral view(s) of the left hip(s). COMPARISON: [facility], , HIP 2V RIGHT, 10/11/2014, 16:01. [facility], , HIP 2V LEFT, 03/20/2010, 11:01. FINDINGS: Bones: No fractures or dislocations. Bilateral hip arthroplasties in place. Unchanged appearance of right hip arthroplasty. The hardware appears intact without surrounding fracture or lucency. Pelvic ring appears intact. No suspicious bony lesions. Macro degenerative Soft tissues: The visualized bowel gas pattern is normal. No suspicious soft tissue calcifications. IMPRESSION: Bilateral hip arthroplasties without evidence of interval complication. Dictated by: David Russo M.D. on 04/02/2023 at 16:45 Approved by: David Russo M.D. on 04/02/2023 at 16:46
--- NOTE | 2023-04-02 14:43 | DI.RAD.S_ITS ---
PROCEDURE: XR FOOT RT MIN 3V INDICATIONS: hx of surgical repair bone spur TECHNIQUE: 3 views of the foot were acquired. COMPARISON: [facility], , FOOT 3V RIGHT, 05/06/2008, 16:36. FINDINGS: Bones: No fractures or dislocations. Moderate hallux valgus angulation of the 1st MTP. Moderate degenerative changes of the 1st MTP and diffuse interphalangeal joints. Midfoot joint degeneration is present with joint space narrowing, subchondral sclerosis and lucencies.. No suspicious bony lesions. Soft tissues: No tibiotalar joint effusion. Achilles tendon appears normal. IMPRESSION: Osteoarthritic changes of the foot, most pronounced within the midfoot. Moderate hallux valgus angulation with medial bunion formation. Dictated by: David Russo M.D. on 04/02/2023 at 16:46 Approved by: David Russo M.D. on 04/02/2023 at 16:48
== END ==
PROVIDERS: PCP Family Medicine; Referring Provider Family Medicine; Visit Provider Family Medicine
DX: M25.552 Pain in left hip (principal); Z96.643 Presence of artificial hip joint, bilateral; M20.11 Hallux valgus (acquired), right foot; M21.611 Bunion of right foot
CPT/HCPCS: 73502; 73630

== ENCOUNTER → 2023-05-14 14:35 | Outpatient (CLI) | payer MEDICARE, SELFPAY ==
[2023-05-14 17:08] LABS: Add Manual Diff / Slide Review NO; Basophils Absolute Auto 0 /uL (0-100); Basophils Percent Auto 0.2 % (0-2); Eosinophils Absolute Auto 100 /uL (0-450); Eosinophils Percent Auto 0.6 % (2-4); Hematocrit 34.5 % (36-46); Hemoglobin 11.8 g/dL (12.0-16.0); Lymphocytes Absolute Auto 17900 /uL (1100-4500); Lymphocytes Percent Auto 80.5 % (25-40); Mean Corpuscular HGB Conc 34.1 % (30-36); Mean Corpuscular Hemoglobin 29.5 PG (26-34); Mean Corpuscular Volume 86.4 fL (80-100); Monocytes Absolute Auto 600 /uL (0-900); Monocytes Percent Auto 2.8 % (3-14); Neutrophils Absolute Auto 3500 /uL (1500-7000); Neutrophils Percent Auto 15.9 % (50-75); Platelet Count 289 X10^3/uL (150-400); Red Blood Cell Count 3.99 X10^6/uL (4.0-5.2); Red Cell Distribution Width 13.6 % (11.6-14.8); White Blood Cell Count 22.2 X10^3/uL (4.5-11.0)
[2023-05-14 17:28] LABS: Alanine Aminotransferase 22 IU/L (<35); Albumin 4.3 g/dL (3.5-5.0); Albumin Globulin Ratio 1.3 (1.0-2.8); Alkaline Phosphatase 95 U/L (38-126); Aspartate Aminotransferase 36 IU/L (14-36); BUN Creatinine Ratio 20.8 (6-22); Bilirubin Total 0.6 mg/dL (0.2-1.3); Blood Urea Nitrogen 20 mg/dL (7-17); Calcium 9.6 mg/dL (8.4-10.2); Carbon Dioxide 27 mmol/L (22-32); Chloride 94 mmol/L (98-107); Estimated Glomerular Filt Rate 58 mL/min (>60); Globulin 3.3 g/dL (1.7-4.1); Glucose 94 mg/dL (80-110); HEMOLYSIS < 15 (0-50); Potassium 3.2 mmol/L (3.4-5.1); Sodium 132 mmol/L (137-145); Total Protein 7.6 g/dL (6.3-8.2)
[2023-05-14 17:56] LABS: TSH w/ Reflex to FT4 < 0.02 uIU/mL (0.47-4.68)
== END ==
PROVIDERS: PCP Family Medicine; Referring Provider Family Medicine; Visit Provider Family Medicine
DX: I10 Essential (primary) hypertension (principal); E03.9 Hypothyroidism, unspecified
CPT/HCPCS: 36415; 80053; 84439; 84443; 85025

== ENCOUNTER → 2023-05-26 11:43 | Outpatient (CLI) | payer MEDICARE, SELFPAY ==
--- NOTE | 2023-05-26 11:47 | DI.CT.S_ITS ---
PROCEDURE: CT ABDOMEN PELVIS W CON INDICATIONS: leukocytosis,anemia,chronic diarrhea/diverticulitis TECHNIQUE: After the administration of intravenous contrast, axial sections acquired from the lung bases to the pubic symphysis. Coronal and sagittal reformats were performed. For radiation dose reduction, the following was used: automated exposure control, adjustment of mA and/or kV according to patient size. COMPARISON: [facility], CT, CT ABDOMEN PELVIS W CON, 12/20/2020, 15:02. FINDINGS: Image quality: Streak metal artifact from bilateral hip replacements limits evaluation of surrounding tissues and the pelvis. Lower Chest: No significant findings. ABDOMEN: Liver: No solid mass. Gallbladder: Cholelithiasis. No gallbladder wall thickening or pericholecystic fluid. Biliary ducts: No biliary dilation. Pancreas: No ductal dilation. Spleen: Size is within normal limits. Adrenal Glands: No adrenal nodules. Kidneys and Ureters: No hydronephrosis. No solid mass. No complex renal cystic lesion which requires follow up. Stomach and Bowel: There is circumferential thickening of the gastric antrum/pylorus, for example series 2, image 30. Normal colonic caliber, without significant wall thickening. Status post appendectomy. Sigmoid diverticulosis without acute inflammation. Peritoneum: No abnormal intraperitoneal fluid. No free air. Ventral Wall: No significant ventral hernia. Abdominal Nodes: No retroperitoneal or mesenteric adenopathy by size criteria. Vessels: Aorta and inferior vena cava are normal in size. Aorto bi iliac atherosclerotic calcifications. PELVIS: Pelvic Organs: Unremarkable. Bladder: No bladder wall thickening, accounting for underdistention. Pelvic Nodes: No enlarged lymph nodes. Miscellaneous: No inguinal hernias are seen. Bones: Degenerative changes of the visualized spine without acute or suspicious osseous abnormality. Status post bilateral hip arthroplasty. IMPRESSION: Circumferential gastric antrum/pylorus thickening. Findings are nonspecific, may reflect gastritis. Consider EGD evaluation if clinically appropriate. Diverticulosis without CT evidence of acute diverticulitis. Cholelithiasis. Approved by: Poornima Perez M.D. on 05/26/2023 at 22:33
== END ==
PROVIDERS: PCP Family Medicine; Referring Provider Family Medicine; Visit Provider Family Medicine
DX: K58.2 Mixed irritable bowel syndrome (principal); K80.20 Calculus of gallbladder without cholecystitis without obstruction; D72.820 Lymphocytosis (symptomatic); R10.32 Left lower quadrant pain; K57.30 Diverticulosis of large intestine without perforation or abscess without bleeding; R19.7 Diarrhea, unspecified
CPT/HCPCS: 74177; Q9967

== ENCOUNTER → 2023-07-19 08:43 | Outpatient (CLI) | payer MEDICARE, SELFPAY ==
[2023-07-19 10:10] LABS: Add Manual Diff / Slide Review NO; Basophils Absolute Auto 0 /uL (0-100); Basophils Percent Auto 0.1 % (0-2); Eosinophils Absolute Auto 200 /uL (0-450); Eosinophils Percent Auto 0.8 % (2-4); Hematocrit 33.4 % (36-46); Hemoglobin 11.1 g/dL (12.0-16.0); Lymphocytes Absolute Auto 18200 /uL (1100-4500); Mean Corpuscular HGB Conc 33.3 % (30-36); Mean Corpuscular Hemoglobin 28.8 PG (26-34); Mean Corpuscular Volume 86.4 fL (80-100); Monocytes Absolute Auto 500 /uL (0-900); Monocytes Percent Auto 2.5 % (3-14); Neutrophils Absolute Auto 2700 /uL (1500-7000); Neutrophils Percent Auto 12.6 % (50-75); Platelet Count 285 X10^3/uL (150-400); Red Blood Cell Count 3.87 X10^6/uL (4.0-5.2); Red Cell Distribution Width 13.9 % (11.6-14.8); White Blood Cell Count 21.6 X10^3/uL (4.5-11.0)
[2023-07-19 10:22] LABS: Alanine Aminotransferase 20 IU/L (<35); Albumin 4.2 g/dL (3.5-5.0); Albumin Globulin Ratio 1.6 (1.0-2.8); Alkaline Phosphatase 96 U/L (38-126); Aspartate Aminotransferase 34 IU/L (14-36); BUN Creatinine Ratio 18.8 (6-22); Bilirubin Total 0.4 mg/dL (0.2-1.3); Blood Urea Nitrogen 15 mg/dL (7-17); Calcium 9.3 mg/dL (8.4-10.2); Carbon Dioxide 29 mmol/L (22-32); Chloride 96 mmol/L (98-107); Estimated Glomerular Filt Rate > 60 mL/min (>60); Globulin 2.7 g/dL (1.7-4.1); Glucose 98 mg/dL (80-110); HEMOLYSIS < 15 (0-50); Potassium 3.5 mmol/L (3.4-5.1); Sodium 131 mmol/L (137-145); Total Protein 6.9 g/dL (6.3-8.2)
[2023-07-19 10:48] LABS: TSH w/ Reflex to FT4 0.38 uIU/mL (0.47-4.68)
== END ==
PROVIDERS: PCP Family Medicine; Referring Provider Internal Medicine Hematology & Oncology; Visit Provider Internal Medicine Hematology & Oncology
DX: E03.9 Hypothyroidism, unspecified (principal); D72.829 Elevated white blood cell count, unspecified
CPT/HCPCS: 36415; 80053; 84439; 84443; 85025

== ENCOUNTER → 2023-08-05 15:06 | Outpatient (CLI) | payer MEDICARE, SELFPAY ==
[2023-08-05 16:31] LABS: TSH w/ Reflex to FT4 0.18 uIU/mL (0.47-4.68)
[2023-08-05 17:08] LABS: Free T4, Direct Thyroxine 1.33 ng/dL (0.78-2.19)
== END ==
PROVIDERS: PCP Family Medicine; Referring Provider Family Medicine; Visit Provider Family Medicine
DX: E03.9 Hypothyroidism, unspecified (principal)
CPT/HCPCS: 36415; 84439; 84443

== ENCOUNTER → 2023-09-29 12:26 | Outpatient (CLI) | payer MEDICARE, SELFPAY ==
[2023-09-29 15:25] LABS: Thyroid Stimulating Hormone 1.06 uIU/mL (0.47-4.68)
== END ==
PROVIDERS: PCP Family Medicine; Referring Provider Family Medicine; Visit Provider Family Medicine
DX: E03.9 Hypothyroidism, unspecified (principal)
CPT/HCPCS: 36415; 84443

== ENCOUNTER → 2024-02-12 07:31 | Outpatient (CLI) | payer MEDICARE, SELFPAY ==
[2024-02-12 09:35] LABS: Hematocrit 35.4 % (36-46); Hemoglobin 11.8 g/dL (12.0-16.0); Mean Corpuscular HGB Conc 33.2 % (30-36); Mean Corpuscular Hemoglobin 29.2 PG (26-34); Mean Corpuscular Volume 87.7 fL (80-100); Platelet Count 322 X10^3/uL (150-400); Red Blood Cell Count 4.04 X10^6/uL (4.0-5.2); Red Cell Distribution Width 14.2 % (11.6-14.8); White Blood Cell Count 21.6 X10^3/uL (4.5-11.0)
[2024-02-12 09:36] LABS: Add Manual Diff / Slide Review YES
[2024-02-12 09:51] LABS: Neutrophils Absolute Manual 1080 /uL (3000-5900); RBC Morphology Normal Morphology; Smudge Cells 1+; Total Cells Counted 100
[2024-02-12 10:07] LABS: Alanine Aminotransferase 25 IU/L (<35); Albumin 4.3 g/dL (3.5-5.0); Albumin Globulin Ratio 1.7 (1.0-2.8); Alkaline Phosphatase 69 U/L (38-126); Aspartate Aminotransferase 37 IU/L (14-36); BUN Creatinine Ratio 15.1 (6-22); Bilirubin Total 0.6 mg/dL (0.2-1.3); Blood Urea Nitrogen 14 mg/dL (7-17); Calcium 9.8 mg/dL (8.4-10.2); Carbon Dioxide 27 mmol/L (22-32); Chloride 91 mmol/L (98-107); Estimated Glomerular Filt Rate > 60 mL/min (>60); Globulin 2.6 g/dL (1.7-4.1); Glucose 102 mg/dL (80-110); HEMOLYSIS < 15 (0-50); Lactate Dehydrogenase 159 U/L (120-246); Potassium 3.7 mmol/L (3.4-5.1); Sodium 128 mmol/L (137-145); Total Protein 6.9 g/dL (6.3-8.2)
== END ==
LOC: LAB 07:33
PROVIDERS: PCP Family Medicine; Referring Provider Internal Medicine Hematology & Oncology; Visit Provider Internal Medicine Hematology & Oncology
DX: C91.10 Chronic lymphocytic leukemia of B-cell type not having achieved remission (principal)
CPT/HCPCS: 36415; 80053; 82232; 83615; 85007; 85025

== ENCOUNTER → 2024-03-05 13:51 | Outpatient (CLI) | payer MEDICARE, SELFPAY ==
[2024-03-05 14:59] LABS: TSH w/ Reflex to FT4 2.12 uIU/mL (0.47-4.68)
== END ==
PROVIDERS: PCP Family Medicine; Referring Provider Family Medicine; Visit Provider Family Medicine
DX: E03.9 Hypothyroidism, unspecified (principal)
CPT/HCPCS: 36415; 84443

== ENCOUNTER → 2024-08-02 15:06 | Outpatient (CLI) | payer MEDICARE, SELFPAY ==
[2024-08-02 15:31] LABS: Hematocrit 34.8 % (36-46); Hemoglobin 11.7 g/dL (12.0-16.0); Mean Corpuscular HGB Conc 33.6 % (30-36); Mean Corpuscular Hemoglobin 29.3 PG (26-34); Mean Corpuscular Volume 87.4 fL (80-100); Platelet Count 315 X10^3/uL (150-400); Red Blood Cell Count 3.98 X10^6/uL (4.0-5.2); Red Cell Distribution Width 14.2 % (11.6-14.8); White Blood Cell Count 23.3 X10^3/uL (4.5-11.0)
[2024-08-02 15:36] LABS: Add Manual Diff / Slide Review YES
[2024-08-02 15:46] LABS: Neutrophils Absolute Manual 6524 /uL (3000-5900); Total Cells Counted 100
[2024-08-02 15:47] LABS: RBC Morphology Normal Morphology; Smudge Cells 3+
[2024-08-02 15:51] LABS: Alanine Aminotransferase 22 IU/L (<35); Albumin 4.4 g/dL (3.5-5.0); Albumin Globulin Ratio 1.6 (1.0-2.8); Alkaline Phosphatase 85 U/L (38-126); Aspartate Aminotransferase 38 IU/L (14-36); Bilirubin Total 0.4 mg/dL (0.2-1.3); Blood Urea Nitrogen 20 mg/dL (7-17); Calcium 9.5 mg/dL (8.4-10.2); Carbon Dioxide 28 mmol/L (22-32); Chloride 94 mmol/L (98-107); Estimated Glomerular Filt Rate > 60 mL/min (>60); Globulin 2.8 g/dL (1.7-4.1); Glucose 106 mg/dL (70-99); HEMOLYSIS < 15 (0-50); Potassium 3.5 mmol/L (3.4-5.1); Sodium 131 mmol/L (137-145); Total Protein 7.2 g/dL (6.3-8.2)
[2024-08-02 16:21] LABS: Thyroid Stimulating Hormone 2.04 uIU/mL (0.47-4.68)
== END ==
PROVIDERS: PCP Family Medicine; Referring Provider Family Medicine; Visit Provider Family Medicine
DX: E78.5 Hyperlipidemia, unspecified (principal); E03.9 Hypothyroidism, unspecified; I10 Essential (primary) hypertension
CPT/HCPCS: 36415; 80053; 84443; 85007; 85025

== ENCOUNTER → 2024-08-13 10:20 | Outpatient (CLI) | payer MEDICARE, SELFPAY ==
[2024-08-13 11:33] LABS: Alanine Aminotransferase 21 IU/L (<35); Albumin 4.3 g/dL (3.5-5.0); Albumin Globulin Ratio 1.7 (1.0-2.8); Alkaline Phosphatase 86 U/L (38-126); Aspartate Aminotransferase 30 IU/L (14-36); Bilirubin Total 0.4 mg/dL (0.2-1.3); Blood Urea Nitrogen 22 mg/dL (7-17); Calcium 9.5 mg/dL (8.4-10.2); Carbon Dioxide 28 mmol/L (22-32); Chloride 95 mmol/L (98-107); Estimated Glomerular Filt Rate 52 mL/min (>60); Globulin 2.5 g/dL (1.7-4.1); Glucose 94 mg/dL (70-99); HEMOLYSIS < 15 (0-50); Lactate Dehydrogenase 148 U/L (120-246); Potassium 3.8 mmol/L (3.4-5.1); Sodium 131 mmol/L (137-145); Total Protein 6.8 g/dL (6.3-8.2)
[2024-08-13 11:40] LABS: Hematocrit 34.4 % (36-46); Hemoglobin 11.5 g/dL (12.0-16.0); Mean Corpuscular HGB Conc 33.4 % (30-36); Mean Corpuscular Volume 86.9 fL (80-100); Platelet Count 326 X10^3/uL (150-400); Red Blood Cell Count 3.96 X10^6/uL (4.0-5.2); White Blood Cell Count 21.2 X10^3/uL (4.5-11.0)
[2024-08-13 11:47] LABS: Add Manual Diff / Slide Review YES
[2024-08-13 12:00] LABS: Neutrophils Absolute Manual 3816 /uL (3000-5900); RBC Morphology Normal Morphology; Total Cells Counted 100
[2024-08-17 14:08] LABS: Beta-2-Microglobulin 2.7 mg/L (0.6-2.4)
== END ==
PROVIDERS: PCP Family Medicine; Referring Provider Internal Medicine Hematology & Oncology; Visit Provider Internal Medicine Hematology & Oncology
DX: C91.10 Chronic lymphocytic leukemia of B-cell type not having achieved remission (principal)
CPT/HCPCS: 36415; 80053; 82232; 83615; 85007; 85025

== ENCOUNTER 2024-08-20 22:33 | Emergency (ER) | payer MEDICARE, SELFPAY ==
[2024-08-20 22:38] VITALS: BP 195/82; PULSE 69; RESP 9; TEMP 36.1; O2SAT 89
--- NOTE | 2024-08-20 22:40 | EKG_ITS ---
[facility] [address] [place] [address] Test Date: 2024-08-20 Pat Name: Lynnette Shaffer Department: Room: Gender: Female [employer]: AYANNA : 1940 Requested By: Order Number: [id number] Reading MD: Eduard Soto Measurements Intervals [place] Rate: 64 P: 78 MT: 204 QRS: 24 QRSD: 94 T: 56 QT: 434 QTc: 447 Interpretive Statements Sinus rhythm with premature atrial complexes with aberrant conduction Nonspecific ST and T wave abnormality Electronically Signed On 08-21-2024 16:24:28 PDT by Eduard Soto
--- NOTE | 2024-08-20 22:43 | DI.RAD.S_ITS ---
PROCEDURE: XR HIP W PEL IF DONE RT 2V INDICATIONS: fall, severe pain TECHNIQUE: AP pelvis with lateral view(s) of the right hip(s). COMPARISON: [facility], , XR HIP W PEL IF DONE LT 2V, 04/02/2023, 14:51. FINDINGS/IMPRESSION: Superior dislocation of the femoral stem of the right hip arthroplasty. No displaced fracture identified. Dictated by: Delon Dukes M.D. on 08/20/2024 at 23:32 Approved by: Delon Dukes M.D. on 08/20/2024 at 23:32
[2024-08-20 22:45] VITALS: PULSE 60; RESP 16; O2SAT 99
[2024-08-20 23:09] VITALS: BP 159/76; PULSE 62; RESP 21; O2SAT 100
--- NOTE | 2024-08-20 23:09 | ED.FALL ---
HPI - Fall General Chief Complaint: Fall Stated Complaint: fall, R hip pain Time Seen by Provider: 08/20/24 23:09 Source: patient, EMS, RN notes reviewed and old records reviewed Mode of arrival: EMS Limitations: no limitations History of Present Illness HPI Narrative: 84-year-old female history of hypertension, dyslipidemia, GERD and hypothyroidism on aspirin 81 mg daily presents after a slip while taking a shower. Patient states her left foot went out and she fell onto her right side. Has history of prior hip replacement bilaterally. She has pain of the right hip. Denies any other injuries. States she did not hit her head denies any neck or back pain, no chest pain or shortness of breath. Denies any nausea or vomiting. Denies any other GI or urinary symptoms. She denies any numbness or tingling. States she can flex her foot without issue and feel normally. Patient received ketamine and fentanyl EN route, was 89% on room air initially was little bit somnolent with medications. Patient notes she has not allergy to Vicodin. No tobacco, 1 or 2 alcoholic drinks nightly, no recreational drugs. Primary care is Dr. Paredes. Related Data Home Medications ?Medication ?Instructions ?Recorded ?Confirmed omeprazole magnesium 20 mg 20 mg PO QDAY ##0 01/15/11 08/25/24 tablet,delayed release (Prilosec OTC) aspirin 81 mg tablet,delayed 81 mg PO DAILY 06/02/20 08/25/24 release calcium carbonate 500 mg PO BID 06/02/20 08/25/24 lactobacillus combination no.9 PO 06/02/20 08/25/24 [Adult 50 Plus Probiotic] ascorbic acid (vitamin C) 500 mg 500 mg PO DAILY 05/24/24 08/25/24 tablet Previous Rx's ?Medication ?Instructions ?Recorded atorvastatin 10 mg tablet 10 mg PO BEDTIME #90 tabs 05/27/24 losartan 100 1 tab PO DAILY #90 tabs 07/08/24 mg-hydrochlorothiazide 25 mg tablet furosemide 20 mg tablet 10 mg (1/2 x 20 mg) PO QAM #90 tabs 08/02/24 carvedilol 12.5 mg tablet 12.5 mg PO BID #180 tabs 08/10/24 levothyroxine 125 mcg tablet 62.5 mcg (1/2 x 125 mcg) PO DAILY 08/10/24 #45 tabs potassium chloride 10 mEq 10 meq PO DAILY #90 caps 08/10/24 capsule,extended release Allergies Allergy/AdvReac Type Severity Reaction Status Date / Time hydrocodone (HYDROCODONE) AdvReac Unknown HALLUCINATI Verified 08/25/24 16:09 ONS ibuprofen (IBUPROFEN) AdvReac Unknown GI UPSET Verified 08/25/24 16:09 oxycodone (OXYCODONE) AdvReac Unknown HALLUCINATI Verified 08/25/24 16:09 ONS Review of Systems Review of Systems ROS Unobtainable: All systems reviewed & are unremarkable except as noted in HPI and below Patient History Medical History Chronic diarrhea Bursitis Abdominal pain Diarrhea History of irritable bowel syndrome Leukocytosis Normocytic anemia Posttraumatic headache Blurred vision, left eye Concussion Fall Sore of lower lip Caregiver stress Irritable bowel syndrome Stressful life events affecting family and household Tremor Anemia Wears glasses Abnormal chest xray (~1956) Anxiety (~2000) Chronic back pain (~1980) Pleurisy (~1953) Mumps Measles Chicken pox Anemia (~1956) Cataracts, bilateral (~2015) Hypothyroidism Skin cancer, basal cell (~2009) Diverticulosis (~2018) Hyperlipidemia GERD (gastroesophageal reflux disease) Hypertension Surgical History Anesthesia Bone spur of foot (~2008) History of left hip replacement (~12/2010) History of right hip replacement (~12/2000) History of tonsillectomy (~1959) History of appendectomy (~1952) History of hysterectomy (~1972) Family History Father Cancer Mother No problems noted. Brother Cancer Grandfather Pneumonia Grandmother Parkinson's disease Social History alcohol intake: former Exam Narrative Exam Narrative: GEN: Patient appears in mild distress. HEAD: No evidence of trauma, no raccoon/Fitzgerald sign. NECK: Nontender, painless range of motion, trachea midline Negative Nexus criteria, no midline line tenderness, distracting injury, altered mental status, neuro deficit. EYES: PERRLA, EOMI ENT: External inspection normal, trachea is midline, TM's are normal no hemotypanum, Nares are clear, no septal hematoma, no dental or oral injury, airway is normal and with normal occlusion, No bony tenderness RESP: Chest is nontender and has symmetric movement, no ecchymosis, breath sounds are normal no crackles, wheezes or rales CVS: Heart sounds are normal, no murmur noted, No JVD. ABG/GI: Nontender, soft, normal bowel sounds, no distention, no organomegaly, pelvic rock is negative NEURO: Oriented AOx3, neuro is grossly intact, sensation and motor is normal all 4 extremities moving, cranial nerves II through XII are intact, GCS is 15 PSYCH: Normal mood and affect SKIN: Intact, warm and dry, no crepitus and without decubitus BACK: No CVA tenderness, no vertebral tenderness, no step-off's, no crepitus EXT: Patient was tenderness over the right hip, does have some deformity, leg is shortened and appears little internally rotated. Patient can plantar flex dorsiflex without issue on the right. 2+ pulses bilaterally. Left hip is nontender, no pedal edema, normal color and temperature, normal range of motion of all other extremities. 2+ pulses bilateral upper extremities. Initial Vital Signs Initial Vital Signs: Vital Signs Temperature 96.9 F L 08/20/24 22:38 Pulse Rate 69 08/20/24 22:38 Respiratory Rate 9 L 08/20/24 22:38 Blood Pressure 195/82 H 08/20/24 22:38 Pulse Oximetry 89 L 08/20/24 22:38 Oxygen Delivery Method Room Air 08/20/24 22:38 Procedures Orthopedic Joint Reduction Joint #1: Time Out Performed: Yes Side: right Joint Reduction Location: hip Analgesia: procedural sedation Technique used: traction/counter-traction (internal rotation) and direct manipulation Post-reduction neuro exam: intact and no change Post-reduction vascular: intact and no change Post Reduction X-Ray Obtained: Yes Post Reduction X-Ray Results: reduced Splint Applied: Yes (Knee immobilizer) Patient Tolerated Procedure: Well Procedural Sedation Consent signed: No Time out performed: Yes Indication: fracture/dislocation reduction ASA Class: II Mallampati Airway Classification: Class III Preparation: carnallite plant operator applied, pulse oximeter, capnometry used, supplemental O2 applied, suction/airway equipment at bedside and IV secured IV Propofol dose (mg): 90 ED Sedation Level: Moderate (Concious) Patient Tolerated Procedure: Well Complications: hypoventilation Interventions: Assist by BVM Course Orders Ordered: Discontinued Medications Sodium Chloride (Normal Saline 0.9%) 1,000 mls @ 1,000 mls/hr IV BOLUS ONE Stop: 08/21/24 00:52 Last Infusion: 08/21/24 01:02 Dose: Infused Documented By: Admin: 08/20/24 23:54 Dose: 1,000 mls/hr Documented By: FRANKLYN Morphine Sulfate (Morphine 4 Mg/Ml Inj) 4 mg IV NOW ONE Stop: 08/20/24 23:41 Last Admin: 08/20/24 23:45 Dose: 4 mg Documented By: FRANKLYN Propofol (Propofol 200 Mg/20 Ml Vial) 60 mg 1 mg/kg (60 mg) IV NOW ONE Stop: 08/20/24 23:55 Last Admin: 08/21/24 00:20 Dose: 60 mg Documented By: FRANKLYN Propofol (Propofol 200 Mg/20 Ml Vial) 30 mg 0.5 mg/kg (30 mg) IV NOW ONE Stop: 08/21/24 01:08 Last Admin: 08/21/24 00:22 Dose: 30 mg Documented By: FRANKLYN Vital Signs Vital signs: Vital Signs - 8 hr 08/20/24 22:38 08/20/24 22:45 08/20/24 23:09 Temperature 96.9 F L Pulse Rate 69 60 62 Respiratory Rate 9 L 16 21 Blood Pressure 195/82 H Pulse Oximetry 89 L 99 100 Oxygen Delivery Method Room Air 08/20/24 23:09 08/20/24 23:30 08/20/24 23:30 Temperature Pulse Rate Respiratory Rate Blood Pressure 159/76 H 170/74 H 170/74 H Pulse Oximetry Oxygen Delivery Method 08/20/24 23:30 08/20/24 23:37 08/20/24 23:37 Temperature Pulse Rate 65 63 Respiratory Rate 24 Blood Pressure 169/77 H Pulse Oximetry 100 100 Oxygen Delivery Method 08/21/24 00:00 08/21/24 00:00 08/21/24 00:05 Temperature Pulse Rate 67 68 Respiratory Rate 20 16 Blood Pressure 182/121 H 182/88 H Pulse Oximetry 99 100 Oxygen Delivery Method 08/21/24 00:06 08/21/24 00:06 08/21/24 00:11 Temperature Pulse Rate 69 67 Respiratory Rate 16 Blood Pressure 191/88 H Pulse Oximetry 100 100 Oxygen Delivery Method 08/21/24 00:11 08/21/24 00:16 08/21/24 00:16 Temperature Pulse Rate 68 Respiratory Rate Blood Pressure 187/76 H 175/84 H Pulse Oximetry 100 Oxygen Delivery Method 08/21/24 00:20 08/21/24 00:20 08/21/24 00:26 Temperature Pulse Rate 67 Respiratory Rate Blood Pressure 195/86 H 156/70 H Pulse Oximetry 100 Oxygen Delivery Method 08/21/24 00:26 08/21/24 00:30 08/21/24 00:31 Temperature Pulse Rate 66 65 Respiratory Rate 16 Blood Pressure 136/75 Pulse Oximetry 88 L 99 Oxygen Delivery Method Ambu Bag Room Air 08/21/24 00:31 08/21/24 00:35 08/21/24 00:36 Temperature Pulse Rate 67 66 Respiratory Rate 24 20 Blood Pressure 140/65 Pulse Oximetry 98 98 Oxygen Delivery Method 08/21/24 00:36 08/21/24 00:40 08/21/24 00:40 Temperature Pulse Rate 66 66 Respiratory Rate 24 20 Blood Pressure 153/70 H Pulse Oximetry 98 98 Oxygen Delivery Method 08/21/24 00:45 08/21/24 00:45 08/21/24 00:57 Temperature Pulse Rate 72 Respiratory Rate 20 Blood Pressure 163/71 H 167/101 H Pulse Oximetry 98 Oxygen Delivery Method 08/21/24 00:57 Temperature Pulse Rate 70 Respiratory Rate 24 Blood Pressure Pulse Oximetry 99 Oxygen Delivery Method MDM - Fall Lab Data Labs: Point of Care Testing Test Results Not applicable ECG Data Attestation: I personally reviewed and interpreted this ECG as follows: Interpretation: Sinus rhythm premature atrial complexes with aberrant conduction, rate of 64 [place] 204 QRS of 94 QTC 447, acute ST elevation or depression. MDM Narrative Medical decision making narrative: Hip x-ray prelim appears does show hip dislocation. Formal report shows superior dislocation femoral stem of the right hip arthroplasty no displaced fracture identified. Postprocedure x-ray shows interval reduction, adequate alignment of the right hip arthroplasty. No displaced fracture. Dr. Hughes with orthopedic surgery reviewed images himself and feels appropriate for sedation reduction here in the department with myself. Patient gave verbal consent, she was quite uncomfortable she has a friend at bedside who witnessed this is well as nursing. Paperwork was filled out but patient was quite uncomfortable and did not wish to physically sign. Patient was weaned off O2 here in the department isn't requiring any as her medications have worn off. Patient tolerated procedure well. Ambulating in the department without assistance. We will plan to send home with a walker, knee immobilizers reminder to prevent particularly movements. Patient has follow up with Orthopedic surgery. Discharge Plan Departure Patient Disposition: Home Clinical Impression: Fall Dislocation of hip, right, closed Qualifiers: Encounter type: initial encounter Qualified Code(s): S73.004A - Unspecified dislocation of right hip, initial encounter Instructions: DI for Hip Dislocation -- Adult Activity Restrictions/Additional Instructions: Follow-up with orthopedic surgery, call to set up an appointment in the next week. Who going to want to avoid movements such as bending of the hip with flexion of the knee and/or rotation at the same time. Continue to wear your knee immobilizer until your follow-up with orthopedic surgery this will help prevent recurrent dislocation. Your doctor will give you safety precautions to keep your hip centred in its socket during the healing period. Be sure to follow these precautions. Keep your knees and toes pointed forward when you sit in a chair, walk, or stand. Do not sit with your legs crossed. Do not bend at the waist more than 90?. Be careful when leaning or when moving in bed to keep your legs as straight ahead as possible. If you have a hip brace, wear it as directed. Do not remove it unless your doctor says you can. If you remove the brace to shower, be extremely careful. Follow hip precautions to limit hip movement. Rest your hip as much as you can. You will need to change your activities to avoid movements that irritate the hip. If your hip is swollen, put ice or a cold pack on it for 10 to 20 minutes at a time. Try to do this every 1 to 2 hours for the next 3 days (when you are awake) or until the swelling goes down. Put a thin cloth between the ice and your skin. Please return for recurrent symptoms, increasing pain, numbness, tingling or weakness or other new or concerning changes. Prescriptions: No Action omeprazole magnesium [Prilosec OTC] 20 MG tablet,delayed release (DR/EC) 20 mg PO QDAY Qty: 0 atorvastatin 10 mg tablet 10 mg PO BEDTIME Qty: 90 3RF losartan-hydrochlorothiazide 100-25 mg tablet 1 tab PO DAILY Qty: 90 0RF carvedilol 12.5 mg tablet 12.5 mg PO BID Qty: 180 2RF Rx Instructions: TAKE ONE TABLET BY MOUTH TWICE DAILY --MUST ADMINISTER WITH A MEAL/FOOD-- potassium chloride 10 mEq capsule, extended release 10 meq PO DAILY Qty: 90 2RF levothyroxine 125 mcg tablet 62.5 mcg PO DAILY Qty: 45 2RF aspirin 81 mg tablet,delayed release (DR/EC) 81 mg PO DAILY calcium carbonate 500 mg calcium (1,250 mg) tablet 500 mg PO BID lactobacillus combination no.9 [Adult 50 Plus Probiotic] PO ascorbic acid (vitamin C) 500 mg tablet 500 mg PO DAILY furosemide 20 mg tablet 10 mg PO QAM Qty: 90 2RF Referrals: Urbano Hughes MD [Physician, Orthopedic Surgery] Tomasa Paredes DO [Primary Care Provider, Family Practice] Stand Alone Forms: Patient Portal/API/Survey
[2024-08-20 23:30] VITALS: BP 170/74; PULSE 65; RESP 24; O2SAT 100
[2024-08-20 23:37] VITALS: BP 169/77; PULSE 63; O2SAT 100
[2024-08-20] MEDS: MORPHINE 4 MG/ML INJ IV (23:45)
[2024-08-20] MEDS: SODIUM CHLORIDE 0.9% 1,000 ML 1000 ML IV (23:54)
[2024-08-21] VITALS (27 sets, daily range): BP systolic 118–195; BP diastolic 58–121; PULSE 54–72; RESP 14–46; O2SAT 88–100
--- NOTE | 2024-08-21 00:19 | DI.RAD.S_ITS ---
PROCEDURE: XR HIP W PEL IF DONE RT 2V INDICATIONS: R hip post reduction TECHNIQUE: 2 views of the hip were acquired. COMPARISON: [facility], CR, XR HIP W PEL RT 2V, 08/20/2024, 22:42. [facility], CR, XR HIP W PEL IF DONE LT 2V, 04/02/2023, 14:51. FINDINGS/IMPRESSION: Interval reduction, with adequate alignment of the right hip arthroplasty. No displaced fracture. Dictated by: Delon Dukes M.D. on 08/21/2024 at 0:47 Approved by: Delon Dukes M.D. on 08/21/2024 at 0:48
[2024-08-21] MEDS: propofoL 200 MG/20 ML VIAL 60 MG IV (00:20)
[2024-08-21] MEDS: propofoL 200 MG/20 ML VIAL 30 MG IV (00:22)
== END 2024-08-21 06:03 | disposition home or self-care (01) ==
PROVIDERS: Emergency Provider Emergency Medicine; PCP Family Medicine
DX: S73.004A Unspecified dislocation of right hip, initial encounter (principal); W18.2XXA Fall in (into) shower or empty bathtub, initial encounter; Z96.643 Presence of artificial hip joint, bilateral
CPT/HCPCS: 27265; 73502; 93005; 96361; 96374; 99152; 99284; J2270; J2704

== ENCOUNTER 2025-01-11 04:13 | Emergency (ER) | payer MEDICARE, SELFPAY ==
[2025-01-11] VITALS (20 sets, daily range): BP systolic 134–170; BP diastolic 62–101; PULSE 54–140; RESP 0–38; TEMP 36.6; O2SAT 89–99
--- NOTE | 2025-01-11 04:19 | ED.GENADULT ---
HPI - General Adult General Chief complaint: Extremity Injury, Upper Stated complaint: R hip dislocation Time Seen by Provider: 01/11/25 04:19 History of Present Illness HPI narrative: 84-year-old female with history of bilateral prosthetic hip replacements, seen here this ED 07/2024 with prosthetic right hip dislocation had successful closed reduction and discharge home, had been wearing right hip brace, recently advised by Orthopedic surgery to try off the brace, went to the bathroom early this morning without wearing hip brace, in hip flexed position felt her right hip pop out, complained of right hip pain. Arrived by EMS, given IV fentanyl and ketamine during transport. No other injuries. She does not take blood thinner medications. Related Data Home Medications ?Medication ?Instructions ?Recorded ?Confirmed omeprazole magnesium 20 mg 20 mg PO QDAY ##0 01/15/11 11/26/24 tablet,delayed release (Prilosec OTC) aspirin 81 mg tablet,delayed 81 mg PO DAILY 06/02/20 11/26/24 release calcium carbonate 500 mg PO BID 06/02/20 11/26/24 ascorbic acid (vitamin C) 500 mg 500 mg PO DAILY 05/24/24 11/26/24 tablet lactobacillus combination no.9 1 cap PO DAILY 08/30/24 11/26/24 [Adult 50 Plus Probiotic] Previous Rx's ?Medication ?Instructions ?Recorded atorvastatin 10 mg tablet 10 mg PO BEDTIME #90 tabs 05/27/24 furosemide 20 mg tablet 10 mg (1/2 x 20 mg) PO QAM #90 tabs 08/02/24 carvedilol 12.5 mg tablet 12.5 mg PO BID #180 tabs 08/10/24 levothyroxine 125 mcg tablet 62.5 mcg (1/2 x 125 mcg) PO DAILY 08/10/24 #45 tabs potassium chloride 10 mEq 10 meq PO DAILY #90 caps 08/10/24 capsule,extended release Disabled Parking Permit 1 ea Not Applicable DAILY #1 ea 08/30/24 losartan 100 1 tab PO DAILY #90 tabs 01/05/25 mg-hydrochlorothiazide 25 mg tablet gabapentin 100 mg capsule 100 mg PO BEDTIME #60 caps 01/06/25 Allergies Allergy/AdvReac Type Severity Reaction Status Date / Time hydrocodone (HYDROCODONE) AdvReac Unknown HALLUCINATI Verified 11/26/24 12:56 ONS ibuprofen (IBUPROFEN) AdvReac Unknown GI UPSET Verified 11/26/24 12:56 oxycodone (OXYCODONE) AdvReac Unknown HALLUCINATI Verified 11/26/24 12:56 ONS Patient History Medical History Dislocation of hip, right, closed Chronic diarrhea Bursitis Abdominal pain Diarrhea History of irritable bowel syndrome Leukocytosis Normocytic anemia Posttraumatic headache Blurred vision, left eye Concussion Fall Sore of lower lip Irritable bowel syndrome Stressful life events affecting family and household Tremor Anemia Wears glasses Abnormal chest xray (~1956) Anxiety (~2000) Chronic back pain (~1980) Pleurisy (~1953) Mumps Measles Chicken pox Anemia (~1956) Cataracts, bilateral (~2015) Hypothyroidism Skin cancer, basal cell (~2009) Diverticulosis (~2018) Hyperlipidemia GERD (gastroesophageal reflux disease) Hypertension Surgical History Anesthesia Bone spur of foot (~2008) History of left hip replacement (~12/2010) History of right hip replacement (~12/2000) History of tonsillectomy (~1959) History of appendectomy (~1952) History of hysterectomy (~1972) Family History Father Cancer Mother No problems noted. Brother Cancer Grandfather Pneumonia Grandmother Parkinson's disease Social History alcohol intake: former Exam Narrative Exam Narrative: GENERAL: Well-developed patient, in mild distress. HEAD: Atraumatic. Normocephalic. EYES: Pupils equal round and reactive. Extraocular motions intact. No scleral icterus. No injection or drainage. ENT: Nose without bleeding, purulent drainage. Throat without erythema, tonsillar hypertrophy or exudate. Airway patent. NECK: Trachea midline. Non tender CARDIOVASCULAR: Regular rate and rhythm without murmurs, gallops, or rubs. RESPIRATORY: Clear to auscultation. Breath sounds equal bilaterally. No wheezes, rales, or rhonchi. GASTROINTESTINAL: Abdomen soft, non-tender, nondistended. EXTREMITIES: Right lower extremity shortening with slight external rotation compared to left lower extremity, with tenderness over lateral right greater trochanter, more so than anterior right hip tenderness. Good DP pulse with distal foot warmth and perfusion. BACK: Nontender without deformity or crepitance. No flank tenderness. NEURO: AOx3. Motor functions grossly nonfocal. SKIN: No rash or erythema of visible areas Initial Vital Signs Initial Vital Signs: Vital Signs Temperature 97.8 F 01/11/25 04:21 Pulse Rate 58 L 01/11/25 04:21 Respiratory Rate 16 01/11/25 04:21 Blood Pressure 170/80 H 01/11/25 04:21 Pulse Oximetry 96 01/11/25 04:21 Oxygen Delivery Method Room Air 01/11/25 04:21 Procedures Orthopedic Joint Reduction Joint #1: Time of procedure: 05:20 Time Out Performed: Yes Side: right Joint Reduction Location: hip (superior posterior prosthetic right hip dislocation) Analgesia: procedural sedation Technique used: traction/counter-traction and direct manipulation Post-reduction neuro exam: intact Post-reduction vascular: intact Post Reduction X-Ray Obtained: Yes Post Reduction X-Ray Results: reduced Splint Applied: Yes (patient to be placed back into her own R hip brace from home) Patient Tolerated Procedure: Well Procedural Sedation Time of procedure: 05:22 Consent signed: Yes Time out performed: Yes Indication: fracture/dislocation reduction ASA Class: II Mallampati Airway Classification: Class I Time of Last PO Intake: 18:00 Preparation: awake overnight monitor applied, pulse oximeter, capnometry used, supplemental O2 applied, suction/airway equipment at bedside and IV secured IV Propofol dose (mg): 90 ED Sedation Level: Moderate (Concious) Patient Tolerated Procedure: Well Complications: Respiratory Depression-Repositioning Required (bried bagging, as with prior reduction 07/2024) Interventions: Airway repositioned and Non-invasive ventilation Additional Comments: Brief bagging and airway positioning, similar response to same dosage regimen 60 mg +30 mg IV push propofol, as she had 07/2024, returned to preprocedure baseline mental status. Total time of sedation 20 minutes estimated. Course Orders Ordered: Discontinued Medications Propofol (Propofol 200 Mg/20 Ml Vial) 200 mg IV NOW ONE Stop: 01/11/25 04:39 Last Admin: 01/11/25 05:29 Dose: 90 mg Documented By: PHU Vital Signs Vital signs: Vital Signs - 8 hr 01/11/25 06:43 01/11/25 06:43 01/11/25 06:46 Pulse Rate 67 Respiratory Rate 14 Blood Pressure 142/101 H 160/97 H Pulse Oximetry 97 01/11/25 06:46 01/11/25 07:00 01/11/25 07:00 Pulse Rate 71 69 Respiratory Rate 11 L Blood Pressure 149/74 H Pulse Oximetry 96 91 01/11/25 07:30 01/11/25 07:30 01/11/25 08:00 Pulse Rate 65 71 Respiratory Rate 16 18 Blood Pressure 164/71 H Pulse Oximetry 96 96 01/11/25 08:00 Pulse Rate Respiratory Rate Blood Pressure 150/70 H Pulse Oximetry Medical Decision Making Lab Data Labs: Point of Care Testing Test Results Not applicable Point of care testing: Point of Care Testing Test Results Not applicable MDM Narrative Medical decision making narrative: 84-year-old female with history of bilateral hip replacements, status post closed reduction of right prosthetic hip dislocation here in ED 07/2024 discharged home, was told to not wear her brace recently by Orthopedic surgery, went to the bathroom early this morning, in flexed hip position felt same right side pain and popping sensation, suspected dislocation, EMS arrival, IV ketamine and fentanyl given during transport, seems to have improving mental status. No other injuries suspected. No craniofacial injuries, no neck tenderness. Verbal consent then written consent for closed reduction/sedation. X-ray shows right superior-lateral prosthetic hip dislocation, no obvious fractures, intact appearing left prosthetic hip also noted. See radiology report. Postreduction x-ray right hip, looks anatomic/reduced, no obvious fracture. My read read. 0530, see separate notes for reduction procedure and for procedural sedation. Placed in abduction pillow between legs, with request for her fitted right hip brace to be retrieved from home and placed prior to discharge if possible. 0600, having a little bit of pain post abduction pillow placement, postreduction x-rays suspicious for subluxation, consider CT. I re-examined patient, RLE is still lengthened, feels better, some mild tenderness to the right anterior hip. Brief pulling of her right foot, patient felt further improvement. Seems to no longer have residual anterior right hip tenderness. Will re x-ray, no CT for now. 0625, similar appearance XR my view, though patient feels further improved, will get CT right hip to eval for effusion/subluxation/dislocation. Keep NPO for now. 0700, awaiting CT right hip report, signed out to Dr Bermudez Discharge Plan Departure Patient Disposition: Home Clinical Impression: S/P closed reduction of dislocated total hip prosthesis Activity Restrictions/Additional Instructions: History of total hip replacement surgeries, July 2024 right hip prosthetic hip dislocation reduced here in the emergency department, wearing hip brace that was recently discontinued at night per orthopedic surgery recommendation, unfortunately had another right prosthetic hip dislocation tonight, this was reduced in the emergency department with IV sedation and tolerated well. Advised continued use of your fitted right hip brace. Follow up with Orthopedic surgery later this week. Return to this/nearest emergency department for any change worsening symptoms or any concerns prior. Prescriptions: No Action omeprazole magnesium [Prilosec OTC] 20 MG tablet,delayed release (DR/EC) 20 mg PO QDAY Qty: 0 atorvastatin 10 mg tablet 10 mg PO BEDTIME Qty: 90 3RF carvedilol 12.5 mg tablet 12.5 mg PO BID Qty: 180 2RF Rx Instructions: TAKE ONE TABLET BY MOUTH TWICE DAILY --MUST ADMINISTER WITH A MEAL/FOOD-- potassium chloride 10 mEq capsule, extended release 10 meq PO DAILY Qty: 90 2RF levothyroxine 125 mcg tablet 62.5 mcg PO DAILY Qty: 45 2RF losartan-hydrochlorothiazide 100-25 mg tablet 1 tab PO DAILY Qty: 90 1RF gabapentin 100 mg capsule 100 mg PO BEDTIME Qty: 60 0RF aspirin 81 mg tablet,delayed release (DR/EC) 81 mg PO DAILY calcium carbonate 500 mg calcium (1,250 mg) tablet 500 mg PO BID lactobacillus combination no.9 [Adult 50 Plus Probiotic] 1 cap PO DAILY ascorbic acid (vitamin C) 500 mg tablet 500 mg PO DAILY furosemide 20 mg tablet 10 mg PO QAM Qty: 90 2RF Disabled Parking Permit 1 ea Not Applicable DAILY Qty: 1 0RF Referrals: Saman Castro MD [Physician, Orthopedic Surgery] Tomasa Paredes DO [Primary Care Provider, Family Practice] Stand Alone Forms: Patient Portal/API
--- NOTE | 2025-01-11 04:22 | DI.RAD.S_ITS ---
PROCEDURE: XR HIP W PEL IF DONE RT 2V INDICATIONS: possible dislocation TECHNIQUE: AP pelvis with lateral view(s) of the right hip(s). COMPARISON: [facility], CR, XR HIP W PEL RT 2V, 08/21/2024, 0:18. FINDINGS: Bones: Bilateral total hip arthroplasties. There is posterior lateral dislocation of the right hip prosthesis. The acetabular cup has a somewhat vertical configuration. Soft tissues: The visualized bowel gas pattern is normal. No suspicious soft tissue calcifications. IMPRESSION: Dislocated total right hip arthroplasty. Somewhat vertical orientation of acetabular cup. Comment: Final report is concordant with preliminary interpretation provided by [facility]. Dictated by: Murray Weber M.D. on 01/11/2025 at 7:40 Approved by: Murray Weber M.D. on 01/11/2025 at 7:41
--- NOTE | 2025-01-11 05:18 | DI.RAD.S_ITS ---
PROCEDURE: XR HIP W PEL IF DONE RT 2V INDICATIONS: post-reduction 2V TECHNIQUE: AP pelvis with lateral view(s) of the right hip(s). COMPARISON: [facility], CR, XR HIP W PEL RT 2V, 01/11/2025, 4:27. FINDINGS: Bones: Successful reduction of total right hip arthroplasty. However, there is widening of the distance between the acetabular cup and the head of the femoral component. No acute fracture or dislocation. Soft tissues: The visualized bowel gas pattern is normal. No suspicious soft tissue calcifications. IMPRESSION: Successful reduction of total right hip arthroplasty. Widening of the distance between the acetabular cup in the head of the femoral component. Consider CT for further evaluation. Comment: Final report is concordant with preliminary interpretation provided by [facility]. Dictated by: Murrya Weber M.D. on 01/11/2025 at 7:41 Approved by: Murray Weber M.D. on 01/11/2025 at 7:43
--- NOTE | 2025-01-11 05:56 | PC.NURSE ---
purewick in place, pillow placed between pt's legs to prevent re-dislocation, pt resting attempting to call neighbor to bring brace for hip
--- NOTE | 2025-01-11 06:18 | DI.RAD.S_ITS ---
PROCEDURE: XR HIP W PEL IF DONE RT 2V INDICATIONS: repeat post-reduction TECHNIQUE: AP pelvis with lateral view(s) of the right hip(s). COMPARISON: [facility], CT, CT HIP RIGHT WITHOUT CON, 01/11/2025, 6:33. [facility], CR, XR HIP W PEL RT 2V, 01/11/2025, 5:13. FINDINGS: Bones: No fractures or dislocations. Bilateral total hip arthroplasties. The right hip arthroplasty was previously posteriorly laterally dislocated. There remains increased distance between the acetabular cup and the head of the femoral prosthesis of the right hip relative to the left hip. Pelvic ring appears intact. No suspicious bony lesions. Soft tissues: The visualized bowel gas pattern is normal. No suspicious soft tissue calcifications. IMPRESSION: No dislocation. The femoral component of the right hip arthroplasty continues to be not tightly seated within the acetabular component. Comment: CT may be helpful. Comment: Final report is concordant with preliminary interpretation provided by [facility]. Dictated by: Murray Weber M.D. on 01/11/2025 at 7:43 Approved by: Murray Weber M.D. on 01/11/2025 at 7:45
--- NOTE | 2025-01-11 06:22 | DI.CT.S_ITS ---
PROCEDURE: CT HIP RIGHT WITHOUT CON INDICATIONS: right hip, eval for effusion/subluxation post-reduction TECHNIQUE: Noncontrast 3 mm axial sections acquired through the bony pelvis. Additional 3 mm axial sections acquired through the symptomatic hip joint, with coronal and sagittal reformats. COMPARISON: [facility], CR, XR HIP W PEL RT 2V, 01/11/2025, 6:14. [facility], CR, XR HIP W PEL RT 2V, 01/11/2025, 5:13. [facility], CR, XR HIP W PEL RT 2V, 01/11/2025, 4:27. FINDINGS: Image quality: Excellent. Bones: Bilateral total hip arthroplasties are noted. There is increased distance between the femoral component and the acetabular cup on the right versus the left suggesting likely joint effusion. No acute fractures. No hardware loosening. Soft tissues: No significant sequelae of acute trauma. Uterus is surgically absent. Severe diverticulosis without CT evidence of acute diverticulitis. IMPRESSION: 1. Bilateral total hip arthroplasties. 2. No acute fracture or dislocation or hardware loosening. 3. Widening of the distance between the femoral component and acetabular cup suggests likely joint fluid. Dictated by: Murray Weber M.D. on 01/11/2025 at 7:34 Approved by: Murray Weber M.D. on 01/11/2025 at 7:37
== END 2025-01-11 08:41 | disposition home or self-care (01) ==
PROVIDERS: Emergency Provider Emergency Medicine; PCP Family Medicine
DX: T84.020A Dislocation of internal right hip prosthesis, initial encounter (principal); Z96.643 Presence of artificial hip joint, bilateral
CPT/HCPCS: 27265; 73502; 73700; 99152; 99284; J2704

== ENCOUNTER → 2025-02-08 10:34 | Outpatient (CLI) | payer MEDICARE, SELFPAY ==
[2025-02-08 12:05] LABS: Hematocrit 32.7 % (36-46); Hemoglobin 11.3 g/dL (12.0-16.0); Mean Corpuscular HGB Conc 34.5 % (30-36); Mean Corpuscular Hemoglobin 30.0 PG (26-34); Mean Corpuscular Volume 87.0 fL (80-100); Platelet Count 323 X10^3/uL (150-400)
[2025-02-08 12:06] LABS: Add Manual Diff / Slide Review YES
[2025-02-08 12:15] LABS: Atypical Lymphocytes Percent 9.0 %; Eosinophils Percent Manual 1.0 % (2-4); Lymphocytes Percent Manual 75.0 % (25-45); Monocytes Percent Manual 3.0 % (2-11); Neutrophils Absolute Manual 2844 /uL (3000-5900); RBC Morphology Normal Morphology; Segmented Neutrophils Percent 12.0 % (38-70); Total Cells Counted 100
[2025-02-08 12:16] LABS: Smudge Cells 1+
[2025-02-08 12:26] LABS: Alanine Aminotransferase 18 IU/L (<35); Albumin 4.3 g/dL (3.5-5.0); Albumin Globulin Ratio 1.7 (1.0-2.8); Alkaline Phosphatase 74 U/L (38-126); Blood Urea Nitrogen 18 mg/dL (7-17); Calcium 9.8 mg/dL (8.4-10.2); Carbon Dioxide 28 mmol/L (22-32); Chloride 90 mmol/L (98-107); Estimated Glomerular Filt Rate > 60 mL/min (>60); Globulin 2.6 g/dL (1.7-4.1); Glucose 111 mg/dL (70-99); HEMOLYSIS < 15 (0-50); Potassium 3.5 mmol/L (3.4-5.1); Sodium 128 mmol/L (137-145); Total Protein 6.9 g/dL (6.3-8.2)
[2025-02-08 13:00] LABS: Thyroid Stimulating Hormone 1.59 uIU/mL (0.47-4.68)
== END ==
PROVIDERS: PCP Family Medicine; Referring Provider Nurse Practitioner; Visit Provider Nurse Practitioner
DX: Z09 Encounter for follow-up examination after completed treatment for conditions other than malignant neoplasm (principal); C91.10 Chronic lymphocytic leukemia of B-cell type not having achieved remission; E03.9 Hypothyroidism, unspecified
CPT/HCPCS: 36415; 80053; 82232; 83615; 84443; 85007; 85025